=== PATIENT | male | born 1960 | race Caucasian/White ===

== ENCOUNTER 2018-11-15 13:10 | Outpatient (CLI) | payer BC, SELFPAY ==
--- NOTE | 2018-11-15 10:45 | DI.RAD_ITS ---
SYMPTOM/DIAGNOSIS: CHRONIC LOW BACK DISCOMFORT, R29.898, LEG WEAKNESS, M54.5 LUMBOSACRAL SPINE: Five views were obtained. Note is made of disc space narrowing at L 5-S 1. Otherwise the intervertebral disc spaces appear fairly well maintained. Mild hypertrophic spurring of vertebral endplates and facet joints is noted at multiple levels. No evidence of spondylolysis or spondylolisthesis. 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
== END 2018-11-15 13:30 ==
PROVIDERS: PCP Nurse Practitioner; Visit Provider Nurse Practitioner
DX: M54.5 Low back pain (principal); R29.898 Other symptoms and signs involving the musculoskeletal system; G89.29 Other chronic pain; M51.37 Other intervertebral disc degeneration, lumbosacral region
CPT/HCPCS: 72110

== ENCOUNTER 2018-11-22 07:04 | Outpatient (CLI) | payer BC, SELFPAY ==
[2018-11-22 08:49] LABS: ALT 19 U/L (12-78); AST 19 U/L (15-37); Albumin 3.8 g/dL (3.4-5.0); Alkaline Phosphatase 48 U/L (46-116); Anion Gap 9.3 mmol/L (3-11); BUN 15 mg/dL (7-18); Bilirubin, Total 0.7 mg/dL (0.2-1.0); CO2 26.7 mmol/L (21.0-32.0); CREATININE 0.78 mg/dL (0.70-1.30); Calculated LDL 125 mg/dL; Chloride 107 mmol/L (98-107); Cholesterol 209 mg/dL (50-200); Glucose 92 mg/dL (70-100); HDL Cholesterol 49 mg/dL (40-60); Sodium 143 mmol/L (136-145); Total Protein 6.8 g/dL (6.4-8.2); Triglyceride 179 mg/dL (30-150)
== END 2018-11-22 07:24 ==
PROVIDERS: PCP Nurse Practitioner; Visit Provider Nurse Practitioner
DX: Z00.00 Encounter for general adult medical examination without abnormal findings (principal); R00.2 Palpitations
CPT/HCPCS: 36415; 80053; 80061; 83721

== ENCOUNTER 2019-08-09 11:00 | Outpatient (CLI) | payer BC, SELFPAY ==
--- NOTE | 2019-08-09 13:00 | DI.US_ITS ---
EXAM: US LOWER EXTREMITY VENOUS RT CLINICAL HISTORY: right calf swelling and pain for 2 weeks,m79.89,m79.661. TECHNIQUE: Right lower extremity venous ultrasound performed using grayscale, color-flow, and spectr al Doppler analysis. COMPARISON: No exams were available for comparison FINDINGS: The right common femoral, femoral and popliteal veins demonstrate normal compressibility, augmentatio n, and color Doppler.There is hypoechoic occlusive thrombus seen in the right posterior tibial vein. It does not extend into the popliteal veins.Saphenofemoral junction is unremarkable. IMPRESSION: There is thrombus present in the right posterior tibialis vein. DATA REPOSITORY:
== END 2019-08-09 11:20 ==
PROVIDERS: PCP Nurse Practitioner; Visit Provider Nurse Practitioner
DX: M79.661 Pain in right lower leg (principal); R22.41 Localized swelling, mass and lump, right lower limb; M79.89 Other specified soft tissue disorders
CPT/HCPCS: 93971

== ENCOUNTER 2019-09-16 11:27 | Outpatient (REF) | payer BC, SELFPAY ==
[2019-09-16 13:05] LABS: Bilirubin Negative (Negative); Blood Large (Negative); Clarity Sl Cloudy (Clear); Glucose Negative (Negative); Ketones Negative (Negative); Leukocyte Esterase Negative (Negative); Nitrite Negative (Negative)
[2019-09-16 13:14] LABS: Epithelial Cells Few HPF (Negative); RBC >50 HPF (0-2)
[2019-09-16 13:15] LABS: C & S Indicated? Yes
== END 2019-09-16 11:47 ==
LOC: LBN 11:27
PROVIDERS: PCP Nurse Practitioner; Visit Provider Nurse Practitioner
DX: R31.9 Hematuria, unspecified (principal)
CPT/HCPCS: 81003; 81015; 87086

== ENCOUNTER 2019-10-30 02:41 | Outpatient (CLI) | payer BC, SELFPAY ==
--- NOTE | 2019-10-30 08:30 | DI.US_ITS ---
EXAM: US LOWER EXTREMITY VENOUS RT CLINICAL HISTORY: F/u right DVT. C/o new distended peripheral vein,i82.409 TECHNIQUE: Right lower extremity venous ultrasound performed using grayscale, color-flow, and spectr al Doppler analysis. COMPARISON: US US LOWER EXTREMITY VENOUS RT from 08/09/2019 FINDINGS: The right common femoral, femoral and popliteal veins demonstrate normal compressibility, augmentatio n, and color Doppler. The posterior tibial veins are patent. The saphenofemoral junction is unremark able. There is no evidence of a Obregon cyst. The soft tissues are unremarkable. IMPRESSION: No DVT. DATA REPOSITORY:
== END 2019-10-30 03:01 ==
PROVIDERS: PCP Nurse Practitioner; Visit Provider Nurse Practitioner
DX: Z86.718 Personal history of other venous thrombosis and embolism
CPT/HCPCS: 93971

== ENCOUNTER 2019-12-13 13:40 | Outpatient (CLI) | payer BC, SELFPAY ==
[2019-12-13 14:27] LABS: Bilirubin Negative (Negative); Blood Trace-intact (Negative); Clarity Clear (Clear); Glucose Negative (Negative); Ketones Negative (Negative); Leukocyte Esterase Negative (Negative); Nitrite Negative (Negative); Specific Gravity 1.015 (1.005-1.025); Urobilinogen 0.2 EU/dL (Up TO 0.2)
[2019-12-13 14:38] LABS: Bacteria Negative HPF (Negative); C & S Indicated? No; Casts Negative LPF (Negative); Crystals Negative HPF (Negative); Epithelial Cells Rare HPF (Negative); Mucus Negative (Negative); RBC 0-2 HPF (0-2); WBC 0-2 HPF (0-5)
[2019-12-13 14:57] LABS: BUN 19 mg/dL (7-18); CREATININE 0.88 mg/dL (0.70-1.30); Calcium 9.1 mg/dL (8.5-10.1); Chloride 102 mmol/L (98-107); Glucose 92 mg/dL (74-106); Potassium 4.1 mmol/L (3.5-5.1); Sodium 138 mmol/L (136-145)
[2019-12-13 22:57] LABS: PSA, Screening 1.3 ng/mL (0.0-3.5)
== END 2019-12-13 14:00 ==
PROVIDERS: PCP Nurse Practitioner; Visit Provider Nurse Practitioner Family
DX: R31.0 Gross hematuria (principal)
CPT/HCPCS: 36415; 80048; 84153; 81003; 81015

== ENCOUNTER 2019-12-17 03:35 | Outpatient (CLI) | payer BC, SELFPAY ==
--- NOTE | 2019-12-17 07:00 | DI.CT_ITS ---
EXAM: CT ABDOMEN PELVIS WO/W TECHNIQUE: Imaging Protocol: Axial computed tomography images with coronal and sagittal reformatted images were created and reviewed CONTRAST MATERIAL: Intravenous: Omnipaque 350 Contrast volume:100 cc contrast route:IV - Oral: no COMPARISON: No exams were available for comparison FINDINGS: ABDOMEN: Lung Bases: Normal where visualized. Liver: Normal density. No measurable mass. Gallbladder and biliary tract: No radiodense calculus or dilation. Pancreas: Normal density, no abnormal calcifications or inflammatory process. Spleen: Normal. Kidneys: Normal size, contour and axis. No radiodense stones or obstructive uropathy. No masses seen. Adrenal glands: No masses seen. Lymph nodes: Within normal limits. Abdominal Aorta: Abdominal portion non-dilated. PELVIS: Bladder: An enhancing mass measuring 17 x 12 millimeters is seen along the right wall of the bladder. Bowel: No obstruction or bowel wall thickening. Peritoneal cavity: No ascites, collection or mesenteric inflammatory response. Bones: Degenerative disc changes are seen at L5-S1. Reproductive organs: Within normal limits. IMPRESSION: Right-sided bladder mass. Normal appearing kidneys. RADIATION DOSE DELIVERED: Total DLP DATA REPOSITORY: All CT scans at this facility are submitted to the National Radiology Data Registry (NRDR) Dose Index Registry (DIR) with the [employer] (ACR). RADIATION OPTIMIZATION: All CT scans at this facility use at least one of these dose optimization te chniques: automated exposure control; mA and/or kV adjustment per patient size (includes targeted exa ms where dose is matched to clinical indication); or iterative reconstruction.
[2019-12-17] MEDS: Omnipaque 350 MG/ML 100 ML BTL IJ (08:06)
[2019-12-17] MEDS: Normal Saline - Diluent 50 ML VIAL IV (08:07)
== END 2019-12-17 03:55 ==
PROVIDERS: PCP Nurse Practitioner; Visit Provider Nurse Practitioner Family
DX: N32.89 Other specified disorders of bladder (principal)
CPT/HCPCS: 74178; J3490

== ENCOUNTER 2019-12-17 07:13 | Outpatient (CLI) | payer BC, SELFPAY ==
[2019-12-18 20:40] LABS: COVID-19 RT-PCR Result NEGATIVE (Negative)
== END 2019-12-17 07:33 ==
PROVIDERS: PCP Nurse Practitioner; Visit Provider Nurse Practitioner Family
DX: Z11.59 Encounter for screening for other viral diseases (principal)
CPT/HCPCS: U0003

== ENCOUNTER 2019-12-20 08:23 | Outpatient (CLI) | payer BC, SELFPAY ==
[2019-12-21 20:22] LABS: COVID-19 RT-PCR Result NEGATIVE (Negative)
== END 2019-12-20 08:43 ==
PROVIDERS: PCP Nurse Practitioner; Visit Provider Urology
DX: Z11.59 Encounter for screening for other viral diseases (principal)
CPT/HCPCS: U0003

== ENCOUNTER 2019-12-20 19:14 | Outpatient (CLI) | payer BC, SELFPAY ==
--- NOTE | 2019-12-20 10:30 | DI.US_ITS ---
EXAM: US LOWER EXTREMITY VENOUS RT CLINICAL HISTORY: Return of DVT?, H/O DVT, CALF SWELLING, PREOP. TECHNIQUE: Lower extremity venous ultrasound performed using grayscale, color-flow, and spectral Do ppler analysis. COMPARISON: No exams were available for comparison FINDINGS: The common femoral, femoral and popliteal veins demonstrate normal compressibility, augmentation, and color Doppler. The posterior tibial veins are patent. No saphenous vein thrombosis or other superfi cial venous thrombosis is seen. No hematoma or Obregon's cyst is seen. IMPRESSION: Negative lower extremity ultrasound. No evidence of DVT. DATA REPOSITORY:
== END 2019-12-20 19:34 ==
PROVIDERS: PCP Nurse Practitioner; Visit Provider Nurse Practitioner Family
DX: M79.89 Other specified soft tissue disorders (principal)
CPT/HCPCS: 93971

== ENCOUNTER 2019-12-24 07:12 | Day surgery (SDC) | payer BC, SELFPAY ==
--- NOTE | 2019-12-24 06:50 | HPE_ITS ---
Assessment and Plan Assessment and plan (1) Bladder mass: Status: Acute Assessment and plan: For cystoscopy and possible TURBT (2) Gross hematuria: Status: Acute History of Present Illness History of Present Illness Chief Complaint: Bladder mass Narrative: his is a 59-year-old gentleman who initially noticed gross painless hematuria about 3 months ago. At that time, he was on an anticoagulant for a right calf DVT. The hematuria never lasted more than 24 hours. He had a urine culture that was negative. He was told that the blood was likely related to the anticoagulant. No additional testing was performed. He has been off of his anticoagulant for the past month. In spite of this, he had another episode of gross painless hematuria. He noticed that his urinary stream was a bit slow. Eventually, he passed some solid debris within the urine. His urine flow immediately improved. His most recent episode of hematuria occurred while he was traveling out of state. We have been trying to negotiate the [employer] quarantine recommendations while obtaining his hematuria work-up. He has been able to get a CT urogram and some blood work drawn. The patient tells me that he was a tobacco smoker in his teens and 20s. He then chewed tobacco after that but is now using nicotine gum. He has no other known bleeding disorders. He has no issues tolerating anesthesia. He tells me that in the last 2 or 3 days, he has had some right calf soreness again. He was concerned that he may be developing another DVT, so a doppler study was obtained. Fortunately, no recurrent DVT was identified. He does have a family history of prostate cancer in that his father was di agnosed at the age of 70. Review of Systems Narrative: No fevers or chills No vision change or dysphasia No diabetes or thyroid dysfunction No shortness of breath, cough or hemoptysis No chest pain No nausea, vomiting, hepatitis, ulcers, jaundice, diarrhea or constipation No seizures, strokes or peripheral neuropathy Hx DVT but recent negative doppler US No gout PFSH Medical History Bladder mass DVT of lower limb, acute Family history of malignant melanoma History of basal cell cancer 02/22/19 Dr Baxter for yearly skin f/u Varicose vein of leg Surgical History (Updated 12/24/19 @ 07:43 by Lashonda Sanchez) Arthroplasty of knee R, year ago Dr. Ferguson, Glenn Delgado Pt. reports it was a scope History of tonsillectomy and adenoidectomy Hx of colonoscopy Family History Mother , mitral valve surgery, pacemaker Heart disease Hypertension Father Melanoma Carcinoma of prostate COPD (chronic obstructive pulmonary disease) Social History Smoking/Tobacco Use Status: Former Tobacco Use Tobacco: How many years used: 10 Alcohol Intake: current Alcohol Intake frequency: 3 or more drinks per day Alcohol type: beer Drug use: Occasionally Substance use type: marijuana Details: pt. used smokeless tobacco for ten years, has not used for a long time. Alcohol: t-5: 2 beers. 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 Working smoke detector in home: Yes Carbon monox detector in home: Yes Do you feel safe at home: Yes Do you feel safe in your relationship?: Yes Meds Home Medications and Allergies Home Medications Medication Instructions Recorded Confirmed Type ibuprofen 200 mg PO PRN 02/23/17 12/24/19 History hydrocortisone 0.5 % topical cream 1 applic TP BID PRN 02/25/19 12/24/19 History thymol 3% in ethyl alcohol 1 applic TOPICAL PRN PRN 02/25/19 12/24/19 History diphenhydramine HCl 25 mg capsule 25 mg PO HS PRN 08/16/19 12/24/19 History Allergies Allergy/AdvReac Type Severity Reaction Status Date / Time No Known Allergies Allergy Unverified 12/24/19 07:38 Exam Const General: cooperative and comfortable Neck Neck: supple Resp Effort & Inspection: normal respiratory effort Auscultation: clear to auscultation bilaterally Cardio Rate: regular rate Rhythm: regular rhythm GI Palpation: soft and no masses Neuro General: patient alert, patient awake and patient oriented x3 COVID-19 Screening Have you,or household,traveled outside [place] in last 14 days?: No Had IN PERSON contact w/suspected or confirmed C-19 person: No
[2019-12-24 07:51] VITALS: BP 133/89; PULSE 65; RESP 16; TEMP 36.7; O2SAT 99
[2019-12-24] MEDS: Lactated Ringers 1,000 ML 80 ML IV (08:10)
[2019-12-24] MEDS: ceFAZolin 1 GM/50 ML BAG IVPB (09:12)
[2019-12-24] MEDS: Lidocaine 2% Jelly 6 ML SYR (09:35)
--- NOTE | 2019-12-24 09:40 | BLADDER_PTH ---
PATIENT: Hiro Middleton LOC: [facility] U#:[id number] AGE/SX: 59/M ROOM: RE12/24/[address]: Maynor Salazar MD : [id number] BED: DIS: 12/24/2019 SPEC #: [id number] RECD: 12/24/19 12:39 STATUS: MAXIMO REWilliam #: [id number] DEZ: 12/24/19 09:[address]: Maynor Salazar DEPT: Surgical Specimen RECD BY: Korin Pinto ENTERED: 12/24/19 12:40 SP TYPE: Bladder OTHR DR: Genevieve Chapman APRN Tissues: 1 - BLADDER BIOPSY Procedures: IMMUNOPEROXIDASE STAIN GROSS AND MICRO LEVEL 5 Comments: [id number]
--- NOTE | 2019-12-24 09:55 | W.PM.DSUDISC ---
Discharge Plan Disposition Patient Disposition: HOME Condition: Stable Discharge Details Reason For Visit: bladder tumor Attending Provider: Maynor Salazar Primary Care Provider: Genevieve Chapman Home Meds and New Rx's Prescriptions: No Action ibuprofen 200 MG capsule 200 mg PO PRN RF: 0 thymol 3% in ethyl alcohol 1 applic topical PRN PRNRF: 0 hydrocortisone 0.5 % cream 1 applic TP BID PRNRF: 0 diphenhydramine HCl [Benadryl] 25 mg capsule 25 mg PO HS PRNRF: 0 Discharge Instructions Additional Instructions: Montesinos to leg bag Followup 1 week for catheter removal Followup 2 weeks for pathology results Activity:: no lifting over 10 pounds Shower/Bathe:: 24 hours Diet:: As Tolerated Discharge Orders Discharge Orders: Discharge Order (Routine); Ordered 12/24/19 Ordered By: Maynor Salazar DS: Diagnosis Discharge Diagnosis (1) Bladder mass: Status: Acute (2) Gross hematuria: Status: Acute
--- NOTE | 2019-12-24 10:02 | ROE_ITS ---
Date of service: 12/24/19 Time of Service: 10:03 Operative Note Operative Note DATE OF PROCEDURE: 12/24/19 PRE-OP DIAGNOSIS: Hematuria Bladder mass POST-OP DIAGNOSIS: same PROCEDURE: cystoscopy with TUR Bladder tumor (2 to 5 cm) SURGEON: Maynor Salazar ANESTHESIA: other (general without intubation) ESTIMATED BLOOD LOSS: 50 PATHOLOGY: other (bladder mass) COMPLICATIONS: None Patient was transported to: same day Patient's condition: stable Indications: This is a 59-year-old gentleman who initially presented with gross painless hematuria. His urine culture was unremarkable. A CT urogram showed a mass on the right side of the bladder. He presents for cystoscopy and transurethral resection of any visible lesion. Findings: Nodular bladder lesion measuring 2 to 3 cm on right bladder wall Procedure Description: The patient was brought to the operating room on 12/24/2019. After successful induction of general anesthesia he was placed in the dorsal lithotomy position. His genitalia was prepped and draped. 2% Xylocaine jelly was instilled into the urethra to act as a local anesthetic. Urethral meatus was dilated up to a size 26 Turkmen. The 24 Turkmen resectoscope sheath was passed through the urethra into the bladder. We used a visual obturator and a 30 degree lens to inspect the urethra and bladder. The pendulous, bulbous and membranous urethra was appeared normal with no strictures. The prostatic urethra showed an elevated bladder neck but no papillary or nodular lesions. Once the bladder neck was entered, the bladder mucosa was inspected. Both ureteral orifice ease appeared normal in configuration and location. No blood was seen coming from either side. The left bladder wall and posterior bladder wall appeared normal. There was a necrotic appearing mass arising on the right side of the bladder. Between 2 and 3 cm in largest dimension. No additional mucosal abnormalities were seen. We then used an [employer] resectoscope and bipolar cautery to resect all visible tumor. We made to the muscle layer so that adequate pathology evaluation could be undertaken. The the resection site was cauterized bipolar cautery. Once hemostasis, the bladder was filled with irrigant. A 20 Turkmen coud? tipped catheter was passed through the urethra into the bladder. The catheter balloon was inflated with 10 cc of sterile water. The catheter was hooked to gravity drainage. A bimanual exam revealed no fixation of the bladder and no palpable mass.
[2019-12-24] MEDS: Phenazopyridine 200 MG TAB PO (10:22)
[2019-12-24 10:43] VITALS: BP 124/85; PULSE 65; RESP 15; TEMP 36.5; O2SAT 99
== END 2019-12-24 11:32 | disposition home or self-care (01) ==
PROVIDERS: PCP Nurse Practitioner; Visit Provider Urology
PROC: 0TBB8ZZ Excision of Bladder, Via Natural or Artificial Opening Endoscopic (ICD-10-PCS; CPT 52235; principal; 2019-12-24 08:30)
DX: C67.2 Malignant neoplasm of lateral wall of bladder (principal); R31.0 Gross hematuria; Z79.01 Long term (current) use of anticoagulants; Z86.718 Personal history of other venous thrombosis and embolism
CPT/HCPCS: 52235; 88305; NC; 88307; 88361; J0690; J1100; J1885; J2001; J2405

== ENCOUNTER 2020-01-24 08:13 | Outpatient (CLI) | payer BC, SELFPAY ==
[2020-01-25 14:58] LABS: COVID-19 RT-PCR Result NEGATIVE (Negative)
== END 2020-01-24 08:33 ==
PROVIDERS: PCP Nurse Practitioner; Visit Provider Urology
DX: Z11.59 Encounter for screening for other viral diseases (principal)
CPT/HCPCS: U0003

== ENCOUNTER 2020-01-27 01:15 | Outpatient (CLI) | payer BC, SELFPAY ==
--- NOTE | 2020-01-27 07:30 | DI.CT_ITS ---
EXAM: CT CHEST W CLINICAL HISTORY: r/o mets,BLADDER CA,C67.9 TECHNIQUE: Imaging Protocol: Axial computed tomography images with coronal and sagittal reformatted images were created and reviewed CONTRAST MATERIAL: Intravenous: Omnipaque 350 Contrast volume:70 cc COMPARISON: CT CT ABDOMEN PELVIS WO/W from 12/17/2019 FINDINGS: Tracheobronchial tree: Patent where visualized. Mediastinum and Saniya: No dominant adenopathy or fluid collection. Pulmonary parenchyma: No consolidation or dominant measurable mass. No pulmonary nodules. Pleura: No effusion or pneumothorax. Heart: The heart is not dilated. No coronary artery calcifications are seen. Aorta: Thoracic aorta non-dilated. No significant atherosclerotic changes. Upper abdomen: Unremarkable. Lymph nodes: Within normal limits. Bones: Degenerative disc changes. Soft tissues: Unremarkable. IMPRESSION: Normal CT of the thorax.No evidence of metastatic disease. RADIATION DOSE DELIVERED: 614.39mGy.cm Total DLP DATA REPOSITORY: All CT scans at this facility are submitted to the National Radiology Data Registry (NRDR) Dose Index Registry (DIR) with the [employer] (ACR). RADIATION OPTIMIZATION: All CT scans at this facility use at least one of these dose optimization te chniques: automated exposure control; mA and/or kV adjustment per patient size (includes targeted exa ms where dose is matched to clinical indication); or iterative reconstruction.
[2020-01-27] MEDS: Omnipaque 350 MG/ML 100 ML BTL IV (13:15)
[2020-01-27] MEDS: Normal Saline - Diluent 50 ML VIAL IV (13:18)
[2020-01-27] MEDS: Normal Saline Flush 10 ML SYR IVP (13:19)
== END 2020-01-27 01:35 ==
PROVIDERS: PCP Nurse Practitioner; Visit Provider Urology
DX: C67.9 Malignant neoplasm of bladder, unspecified (principal)
CPT/HCPCS: 71260; J3490

== ENCOUNTER 2020-01-29 01:00 | Outpatient (CLI) | payer BC, SELFPAY ==
--- NOTE | 2020-01-29 08:00 | DI.NM_ITS ---
EXAM: NM BONE SCAN WHOLE BODY GRP CLINICAL HISTORY: r/o mets, BLADDER CA, C67.9. TECHNIQUE: Injected Dose: 26.0 mCi Tc-99m MDP Delayed whole body images and lateral views of the ribs and pelvis were performed at: 2-3 hours. COMPARISON: CT CT ABDOMEN PELVIS WO/W from 12/17/[address] CHEST W from 01/27/2020 FINDINGS: Symmetric axial uptake. Bilateral renal excretion is identified. There is mildly increased activity i n the lower lumbar spine which could be attributable to degenerative changes. Increased activity is seen symmetrically in both AC joints which could also be secondary to degenerative changes. Mildly increased activity is seen in the medial femoral tibial joint of the right knee. IMPRESSION: 1. Areas mildly increased labeling likely reflecting degenerative changes. No evidence of metastatic disease. DATA REPOSITORY:
== END 2020-01-29 01:20 ==
PROVIDERS: PCP Nurse Practitioner; Visit Provider Urology
DX: C67.9 Malignant neoplasm of bladder, unspecified (principal)
CPT/HCPCS: 78306

== ENCOUNTER 2020-02-21 01:13 | Outpatient (CLI) | payer BC, SELFPAY ==
[2020-02-21 12:34] LABS: Bilirubin Negative (Negative); Blood Moderate (Negative); Clarity Clear (Clear); Glucose Negative (Negative); Ketones Negative (Negative); Leukocyte Esterase Trace (Negative); Nitrite Negative (Negative); Urobilinogen 0.2 EU/dL (Up TO 0.2)
[2020-02-21 12:43] LABS: Bacteria Few HPF (Negative); C & S Indicated? C&S Done As Ordered; Casts Negative LPF (Negative); Crystals Negative HPF (Negative); Epithelial Cells Rare HPF (Negative); Mucus Negative (Negative)
== END 2020-02-21 01:33 ==
PROVIDERS: PCP Nurse Practitioner; Visit Provider Nurse Practitioner
DX: C67.9 Malignant neoplasm of bladder, unspecified (principal); R30.0 Dysuria
CPT/HCPCS: 36415; 81003; 81015; 82565; 87086

== ENCOUNTER 2020-02-28 08:45 | Outpatient (CLI) | payer BC, SELFPAY ==
--- NOTE | 2020-03-17 12:44 | ZIOP_ITS ---
Date of service: 03/17/20 Time of Service: 12:44 14 Day [employer] Mechanical Engineer Referring Provider:: beatris Indications:: palps Note: This is a 14-day monitor ordered for indication of palpitations. ?The patient was in normal sinus rhythm for the majority of the recording with an average heart rate of 69 bpm. Minimum heart rate was 44 bpm. ?The patient had occasional (2.4%) PVCs and rare PACs. ?The patient had multiple episodes of supraventricular tachycardia. Tachycardia labeled as VT is likely SVT with baseline right bundle branch block. The maximal heart rate during these tachycardic episodes was 256 bpm. ?There were no episodes of atrial fibrillation, no pauses greater than 3 seconds and no evidence of high degree heart block. ?Patient triggered events were associated with sinus rhythm.
== END 2020-02-28 09:05 ==
PROVIDERS: PCP Nurse Practitioner; Visit Provider Nurse Practitioner
DX: R00.2 Palpitations (principal); Z82.49 Family history of ischemic heart disease and other diseases of the circulatory system
CPT/HCPCS: 0296T

== ENCOUNTER 2020-02-28 09:03 | Emergency (ER) | payer BC, SELFPAY ==
[2020-02-28] VITALS (34 sets, daily range): BP systolic 114–150; BP diastolic 77–93; PULSE 57–76; RESP 12–23; TEMP 36.7; O2SAT 96–100
--- NOTE | 2020-02-28 09:00 | RT.EKG_ITS ---
APPROVED REPORT Exam: Resting ECG Patient Location: E HR:68 bpm ECG Measurements Heart Rate 68 AXIS OK 169 P 42 QRSd 139 QRS 54 QT 402 T 12 QTc 429 Conclusion Sinus rhythm, normal P axis Right bundle branch block
--- NOTE | 2020-02-28 09:07 | ED.GENADUL_ITS ---
Discharge Plan Disposition Patient Disposition: HOME Condition: Stable Discharge Details Clinical Impression: Tachycardia Primary Care Provider: Genevieve Chapman ED Provider: Wyatt Dobbins Home Meds and New Rx's Prescriptions: New metoprolol succinate 25 mg tablet extended release 24 hr 25 mg PO DAILY Qty: 20 RF: 0 Discharge Instructions Instructions: Tachycardia (ED) Additional Instructions: Work-up in the ER today did not reveal any obvious emergent process, upon discharge you are currently asymptomatic with a heart rate in the low 60s. Metoprolol as directed. Please watch for new or worsening symptoms and return to the ER for any concerns. Wear your Holter monitor as directed and follow the instructions given to you by the respiratory therapist. I recommend reaching out to your primary care provider later today or tomorrow for prompt outpatient reevaluation. I also recommend that you reach out to our restaurant management internship, Dr. Del Rio, she is aware of your case and will follow you as an outpatient. Referrals: Dominique Del Rio MD [ [facility] STAFF PHYSICIAN] - Medical Decision Making 59-year-old gentleman with recent diagnosis of bladder CA, presenting for a week or so of a sensation in his chest, when this happens he feels lightheaded and has generalized weakness. Spoke with his primary care provider regarding this and was set up today for a fruit or nut farmworker. Went to visit with respiratory therapy and subsequently came to the ER for further evaluation. Patient is currently asymptomatic however during my evaluation I was able to see his fruit or nut farmworker and his heart rate went from the 60s up into the 140s, this lasted for a few seconds, and during this timeframe he was symptomatic. Once it resolved he was once again asymptomatic. The rhythm strip was printed and it appears as though he was in a narrow complex tachycardia, reviewed with Dr. Olsen. Will initiate a cardiac work-up, obtain TSH, chest CTA given his history of CVA, DVT, now with tachycardia. Initial work-up here in the ER is unremarkable for obvious emergent process. White blood cell count of 3.96 hemoglobin 15.6 hematocrit 46.2 platelet count 233. Electrolytes unremarkable. Creatinine 0.90 with a GFR greater than 60. Glucose 94 magnesium 2.0, troponin less than 0.05, BNP 124, TSH 0.88. Chest CTA read by radiology as negative. Discussed work-up with patient. He is relieved. Watching his fruit or nut farmworker, he did go into short runs of what appeared to be narrow complex sinus tachycardia that did resolve spontaneously. Patient is agreeable to await a repeat troponin at 3 hours. In the meantime I reached out to our cardiology team, Dr. Del Rio. She recommends starting the patient on metoprolol 25 mg daily, setting up for his Holter monitor, and she is happy to follow the patient as an outpatient. She believes he can be safely discharged here in the ER. I will give him her name and number for outpatient reevaluation. Respiratory contacted, they came down set up for the Holter monitor. First dose of metoprolol given here in the ER. Repeat troponin less than 0.05. Patient remains asymptomatic. We discussed outpatient Holter monitor, prescription for metoprolol, cardiology follow-up, and encouraged to return to the ER for new or worsening symptoms. Patient without additional questions or concerns and is comfortable with discharge. Medical Records Medical records reviewed: Yes I reviewed the patient's medical records. Lab Data Lab results reviewed: Yes I reviewed the patient's lab results. Lab results narrative: Laboratory Tests Range/Units 02/28/20 02/28/20 02/28/20 09:17 09:17 09:17 WBC (4.4-10.8) 10^3/uL 3.96 L RBC (4.36-5.78) 10^6/uL 5.35 Hgb (13.5-17.5) g/dL 15.6 Hct (40.0-50.0) % 46.2 MCV (80-95) fL 86.4 MCH (27.0-33.0) pg 29.2 MCHC (32.0-36.0) % 33.8 RDW (11.8-14.1) % 12.0 Plt Count (130-400) 10^3/uL 233 MPV (8.0-11.0) fL 10.5 Immature Gran % 0.0 Neutrophils % 49.3 Lymphocytes % 37.1 Monocytes % 9.8 Eosinophils % 3.3 Basophils % 0.5 Nucleated RBC % % 0 Absolute Neutrophils (1.2-6.7) 10^3/uL 1.95 Absolute Lymphocytes (1.2-3.4) 10^3/uL 1.47 Absolute Monocytes (0.1-0.8) 10^3/uL 0.39 Absolute Eosinophils (0.0-0.7) 10^3/uL 0.13 Absolute Basophils (0.0-0.2) 10^3/uL 0.02 Sodium (136-145) mmol/L 137 Potassium (3.5-5.1) mmol/L 4.0 Chloride (98-107) mmol/L 103 Carbon Dioxide (21.0-32.0) mmol/L 29.9 Anion Gap (3-11) mmol/L 4.1 BUN (7-18) mg/dL 18 Creatinine (0.70-1.30) mg/dL 0.90 Estimated GFR/1.73 m2 (mL/min/1.73m2) >= 60.00 Glucose (74-106) mg/dL 94 Calcium (8.5-10.1) mg/dL 9.1 Magnesium (1.8-2.4) mg/dL 2.0 Total Bilirubin (0.2-1.0) mg/dL 0.9 AST (15-37) U/L 22 ALT (16-63) U/L 17 Alkaline Phosphatase (46-116) U/L 65 Troponin I (<0.06) ng/mL < 0.05 NT-Pro-B Natriuret Pep (<300) pg/mL 124 Total Protein (6.4-8.2) g/dL 7.4 Albumin (3.4-5.0) g/dL 4.1 TSH (0.36-3.74) uIU/mL 0.88 ECG Data Attestation: I personally reviewed and interpreted this ECG (s) as follows: Interpretation: Please see official report by Dr. Olsen. Sinus rhythm, ventricular rate of 68. Right bundle branch block. No STEMI. HPI General Mode of arrival: ambulatory . Date/Time Provider Initiated Documentation: 02/28/20 09:03 . Limitations to Documentation: no limitations . Information obtained by: patient . HPI Narrative: This is a 59-year-old gentleman, former smoker, past medical history of recent diagnosis of bladder cancer, DVT earlier this year, was anticoagulated for 3 months, currently not anticoagulated. He is awaiting his follow-up with urology to decide whether or not he has stage I or stage II bladder cancer and what the treatment plan will be. He reports a history of palpitations that he describes as fluttering in his chest intermittently for a very long time. Subsequently for the past week or so he has had a different sensation in his chest, he explains it as though when he is nervous with public speaking and feels nervous. Denies fluttering or pain. When he gets this sensation he also has generalized weakness, feels lightheaded. He denies any recent illness or trauma. He denies headache, fever, chest pain, shortness of breath, abdominal pain, nausea, vomiting, numbness, tingling, weakness in his extremities. He has talk with his primary care provider and was set up today to meet with respiratory therapy for a 14-day fruit or nut farmworker but upon evaluation was subsequently sent to the ER. During my HPI, patient reported that he was asymptomatic, I was able to visualize his heart rate on the fruit or nut farmworker go from the high 60s, up to what appeared to be a narrow complex tachycardia into the 130s-140s. Patient stated there it is. Subsequently this resolved spontaneously within a matter of a few seconds, patient returned to feeling asymptomatic. Related Data Home Medications Medication Instructions Recorded Confirmed metoprolol succinate 25 mg PO DAILY #20 tab 02/28/20 Previous Rx's Medication Instructions Recorded metoprolol succinate 25 mg PO DAILY #20 tab 02/28/20 Allergies Allergy/AdvReac Type Severity Reaction Status Date / Time No Known Allergies Allergy Unverified 12/24/19 07:38 Review of Systems Constitutional Constitutional: Denies fatigue, Denies fever(s) and Denies headache(s) ENT Ears, Nose, Mouth, and Throat: Denies headache(s) Cardiovascular Cardiovascular: Denies chest pain, Reports lightheadedness and Denies dyspnea Respiratory Respiratory: Denies cough and Denies dyspnea Gastrointestinal Gastrointestinal: Denies abdominal pain, Denies nausea and Denies vomiting Genitourinary Genitourinary: Denies dysuria Musculoskeletal Musculoskeletal: Denies back pain, Denies numbness and Denies tingling Integumentary/Breasts Skin/Breast: Denies rash Neurologic Neurologic: Denies headache(s), Denies numbness, Denies tingling and Reports weakness (Generalized) Psychiatric Psychiatric: Reports anxiety (And increased stress) Endocrine Endocrine: Denies fatigue [facility] Medical History Bladder cancer Bladder mass DVT of lower limb, acute Family history of heart disease Family history of malignant melanoma History of basal cell cancer 02/22/19 Dr Baxter for yearly skin f/u Palpitations Varicose vein of leg Surgical History Arthroplasty of knee R, year ago Dr. Ferguson, [facility] [place] Pt. reports it was a scope History of tonsillectomy and adenoidectomy Hx of colonoscopy Family History Mother , mitral valve surgery, pacemaker Heart disease Hypertension Father Melanoma Carcinoma of prostate COPD (chronic obstructive pulmonary disease) Social History Smoking/Tobacco Use Status: Former Tobacco Use Tobacco: How many years used: 10 Smoking risk assessment performed?: Yes Alcohol Intake: current Alcohol Intake frequency: 3 or more drinks per day Alcohol type: beer Drug use: Occasionally Substance use type: marijuana Details: pt. used smokeless tobacco for ten years, has not used for a long time. Alcohol: t-5: 2 beers. Marijuana: weeks ago Adopted: No Household members: none Housing: house Number of Children: 0 Communication Needs: Corrective Lenses Do you need help understanding health information?: Never Pets and animals: Yes Pets and animals: cat(s) What type of physical activity do you participate in: none Seatbelt use: always Drive intox or ride w/intox auto carrier driver: No Working smoke detector in home: Yes Carbon monox detector in home: Yes Do you feel safe at home: Yes Do you feel safe in your relationship?: Yes Exam Const General: cooperative, healthy appearing, comfortable and no acute distress Orientation: alert and awake [facility] Head: normal to inspection, normocephalic and atraumatic Face and sinus: normal facial exam Mouth: moist mucous membranes Eyes General: appearance normal, both eyes and all related structures Conjunctivae: conjunctivae normal Sclera: sclerae normal Neck Neck: normal visual inspection, full ROM, meningismus present, trachea midline and supple Resp Effort & Inspection: normal respiratory effort and able to speak in complete sentences Auscultation: clear to auscultation bilaterally Cardio Rate: regular rate Rhythm: regular rhythm GI Palpation: soft, not firm, no guarding, no masses and nontender Back/Spine/Pelvis Back: No back tenderness Skin General skin exam: no rashes or lesions noted Neuro General: patient alert, patient awake, moves all extremities and no focal motor deficits Cognition: normal cognition Speech: speech normal Gait: normal gait Motor: muscle tone normal throughout and strength 5/5 throughout Sensory Exam: no sensory deficits noted Extrem General: normal to inspection, full ROM, capillary refill normal, no pedal edema and no calf tenderness Psych Appearance: grossly normal Mental Status: mental status grossly normal
--- NOTE | 2020-02-28 09:30 | DI.CT_ITS ---
EXAM: CT CHEST PE CTA CLINICAL HISTORY: tachy, recent dvt, not anticoagulated. TECHNIQUE: Imaging Protocol: Axial CT angiography was performed with multi-slice acquisition and mu lti-planar and/or 3D reconstructions. CONTRAST MATERIAL: Intravenous: Omnipaque 350 Contrast volume:85 mL COMPARISON: CT CT ABDOMEN PELVIS WO/W from 12/17/2019 FINDINGS: Pulmonary Arteries: No evidence of filling defect to suggest pulmonary emboli. Tracheobronchial tree: Patent where visualized. Mediastinum and Saniya: No dominant adenopathy or fluid collection. Pulmonary parenchyma: No consolidation or dominant measurable mass. No architectural distortion. Pleura: No effusion or pneumothorax. Heart: The heart is not dilated. Mild coronary artery calcification. No pericardial effusion. Aorta: Thoracic aorta non-dilated. No dissection. Upper abdomen: Unremarkable. Bones: Degenerative changes. Soft tissues: Unremarkable. IMPRESSION: No evidence of pulmonary embolism, thoracic aortic dissection or aneurysm. Findings were discussed with the emergency department on the date of the examination. RADIATION DOSE DELIVERED: 381.24mGy.cm Total DLP DATA REPOSITORY: All CT scans at this facility are submitted to the National Radiology Data Registry (NRDR) Dose Index Registry (DIR) with the [employer] (ACR). RADIATION OPTIMIZATION: All CT scans at this facility use at least one of these dose optimization te chniques: automated exposure control; mA and/or kV adjustment per patient size (includes targeted exa ms where dose is matched to clinical indication); or iterative reconstruction.
[2020-02-28 09:32] LABS: Absolute Basophil Count 0.02 10^3/uL (0.0-0.2); Absolute Eosinophil Count 0.13 10^3/uL (0.0-0.7); Absolute Lymphocyte Count 1.47 10^3/uL (1.2-3.4); Absolute Monocyte Count 0.39 10^3/uL (0.1-0.8); Absolute Neutrophil Count 1.95 10^3/uL (1.2-6.7); Basophils % 0.5; Eosinophils % 3.3; HCT 46.2 % (40.0-50.0); HGB 15.6 g/dL (13.5-17.5); Lymphocytes % 37.1; MCH 29.2 pg (27.0-33.0); MCHC 33.8 % (32.0-36.0); MCV 86.4 fL (80-95); MPV 10.5 fL (8.0-11.0); Monocytes % 9.8; Neutrophils % 49.3; Nucleated RBC 0 %; Platelet Count 233 10^3/uL (130-400); RBC 5.35 10^6/uL (4.36-5.78); WBC 3.96 10^3/uL (4.4-10.8)
[2020-02-28] MEDS: Normal Saline 1,000 ML 1000 ML IV (09:55)
[2020-02-28 10:08] LABS: ALT 17 U/L (16-63); AST 22 U/L (15-37); Albumin 4.1 g/dL (3.4-5.0); Alkaline Phosphatase 65 U/L (46-116); Anion Gap 4.1 mmol/L (3-11); BUN 18 mg/dL (7-18); Bilirubin, Total 0.9 mg/dL (0.2-1.0); CO2 29.9 mmol/L (21.0-32.0); Calcium 9.1 mg/dL (8.5-10.1); Chloride 103 mmol/L (98-107); Glucose 94 mg/dL (74-106); Sodium 137 mmol/L (136-145); Total Protein 7.4 g/dL (6.4-8.2)
[2020-02-28 10:09] LABS: NT-proBNP 124 pg/mL (<300); TSH (W/Ref FT4) 0.88 uIU/mL (0.36-3.74); Troponin I < 0.05 ng/mL (<0.06)
[2020-02-28] MEDS: Omnipaque 350 MG/ML 100 ML BTL IV (10:19)
[2020-02-28] MEDS: Normal Saline - Diluent 50 ML VIAL IV (10:20)
--- NOTE | 2020-02-28 10:57 | NUR.NOTE ---
Nursing Note: Independent [place] given cristian Walsh at ER door. Jigna showed her ID for verification purposes. Updated about pt's condition and plan of care- pt verbally agreed to this. Jigna states she will wait in parking lot until further updates. Dog with her in parking lot, given water.
--- NOTE | 2020-02-28 11:44 | NUR.NOTE ---
Nursing Note:Attempt to have patient talk with Stormy from via Zoom. Patient would not cooperate, she held the pillow up in front of her face and just looked around the pillow and Stormy was unable to see her mouth. Stormy will come in to evaluate her. Maintenance needed to work in patient room for a min. Patient walked around the ER with [facility]. Patient was cooperative and followed direction. Lunch tray ordered. Patient was allowed to choose from options available.
[2020-02-28] MEDS: Metoprolol CR 25 MG TABCR PO (12:01)
--- NOTE | 2020-02-28 12:05 | NUR.NOTE ---
Nursing NoteResp. here putting patients Halter Monitor on.
[2020-02-28 12:53] LABS: Troponin I < 0.05 ng/mL (<0.06)
== END 2020-02-28 13:08 | disposition home or self-care (01) ==
PROVIDERS: Emergency Provider Physician Assistant; PCP Nurse Practitioner
DX: R00.0 Tachycardia, unspecified (principal)
CPT/HCPCS: 36415; 71275; 80053; 93005; 96360; 96361; 99285; 83735; 83880; 84443; 84484; 85025; 93010; J3490

== ENCOUNTER 2020-03-24 00:26 | Outpatient (CLI) | payer BC, SELFPAY ==
--- NOTE | 2020-03-24 07:00 | DI.US_ITS ---
APPROVED REPORT EXAM: Comprehensive 2D, Doppler, and color-flow Echocardiogram Patient Location: Out-Patient Cook Helper Dessert: Maria M Mann RDCS (AE) Indications: Palpitations, Family history of CAD Other Information Study Quality: Good Conclusion Left Ventricle : The left ventricle is normal size. The left ventricular systolic function is normal. The left ventricular ejection fraction is within the normal range. There is normal left ventricular wall thickness. There is normal LV segmental wall motion. The left ventricular diastolic function is normal. LVEF is 60%. Right Ventricle : The right ventricle is normal size. The right ventricular systolic function is norm al. The RVSP is 28.9mmHg. Atria : The left atrium size is normal. The right atrium size is normal. Mitral Valve : The mitral valve is normal in structure. Mild mitral regurgitation. No evidence of homero ral valve stenosis. Great Vessels : Aortic root is mildly dilated. The ascending aorta is dilated (4.2cm). Aortic arch is normal in caliber. IVC is normal in size and collapses >50% with inspiration. See remainder of study for further details Wall motion Left Ventricle The left ventricle is normal size. The left ventricular systolic function is normal. The left ventric ular ejection fraction is within the normal range. There is normal left ventricular wall thickness. T here is normal LV segmental wall motion. The left ventricular diastolic function is normal. There is no ventricular septal defect visualized. LVEF is 60%. Right Ventricle The right ventricle is normal size. The right ventricular systolic function is normal. The RVSP is 28 .9mmHg. Atria The left atrium size is normal. The right atrium size is normal. The interatrial septum is intact wit h no evidence for an atrial septal defect. Aortic Valve The aortic valve is normal in structure. Aortic valve is trileaflet. There is no aortic valvular sten osis. No aortic regurgitation is present. Mitral Valve The mitral valve is normal in structure. No evidence of mitral valve stenosis. Mild mitral regurgitat ion. Tricuspid Valve The tricuspid valve is normal in structure. There is no tricuspid valve stenosis. Trace tricuspid reg urgitation. Pulmonic Valve The pulmonary valve is normal in structure. There is no pulmonic valvular stenosis. Trace pulmonic re gurgitation. Great Vessels Aortic root is mildly dilated. The ascending aorta is dilated (4.2cm). Aortic arch is normal in calib er. IVC is normal in size and collapses >50% with inspiration. Pericardium There is no pericardial effusion. 2D Dimensions IVSD d PLAX 1.07 cm M: 0.6-1.2 LV Vol A2C d MOD 93.4 mL LVPW d PLAX 1.06 cm M: 0.6 - 1.2 LV Vol A4C d MOD 119.5 mL LVID d PLAX 4.52 cm M: 4.2 - 5.8 LA vol/ BSA A2C s A-L 26.2 mL/m2 LVDs 2.90 cm M: 2.5 - 4.0 LA vol/ BSA A4C s A-L 20.2 mL/m2 Ao Root d 3.97 cm M: 3.1 - 3.7 LA Vol/ BSA Biplane s A-L 23.3 mL/m2 RA Area A4C 12.92 cm2 LA Area A4C s MOD 15.69 cm2 RA Vol/ BSA A4C s A-L 15.6 mL/m2 LA Area A2C s MOD 18.14 cm2 Ao Asc Diam d 4.21 cm M: 2.6 - 3.4 LV EF A4C MOD 59.3 % LV EF Teichholz 64.2 % LV EF A2C MOD 60.1 % LVEF (Murphy's) 60.65 % M: 52 - 72 LV EF Biplane MOD 60.6 % LV Volume 82.11 mL M: 62 - 150 SV 66.61 mL LV Volume Index 40.64 mL/m2 M: 34 - 74 SV Index 32.99 mL/m2 LV Vol Biplane MOD 109.8 mL FS 34.80 % M-Mode TAPSE 2.01 cm (M/F) >1.7 LV Diastology MV E' medial 0.095 (>0.07 m/s) E/A Ratio 0.9 LV E/e MED 6.70 (<14) MV E Vmax 0.64 (0.4-1.3 m/s) MV E' lateral 0.132 (>0.1 m/s) MV A Vmax 0.70 (0.4-1.3 m/s) LV E/e LAT 4.80 (<14) MV E/A Ratio 0.89 MV E/E' medial 6.74 MV E/E' lateral 4.85 Aortic Valve LVOT Area 4.16 cm2 AoV Area Vmax 4.05 cm2 LVOT Vmax 1.23 m/s AoV Area/ BSA (Vmax) 2.01 cm2/m2 LVOT Mean Dilshad. 0.79 m/s PRISCILA Mean Dilshad. 3.71 cm2 LVOT Peak Grad 6.1 mmHg PRISCILA Mean Dilshad. Index 1.84 cm2/m2 LVOT Mean Grad 2.9 mmHg LVOT VTI 0.236 m LVOT Diam s 2.30 cm AoV Vmax 1.27 m/s Velocity Ratio 0.96 AoV Mean Dilshad. 0.88 m/s AoV Peak Grad 6.4 mmHg LVOT SV 98.24 mL AoV Mean Grad 3.5 mmHg AoV VTI 0.241 m AoV Area VTI 4.08 cm2 AoV Area/ BSA (VTI) 2.02 cm/m2 Mitral Valve MV DT 210 (160-240 msec) MR Vmax 4.52 m/s MV PHT 61 msec MR VTI 1.508 m MV Area PHT 3.61 cm2 MR Peak Grad 81.8 mmHg MV VTI 0.188 m MR Mean Grad 68.0 mmHg MV VTI Annulus 0.196 m MR PISA Radius 0.42 cm MV Area VTI 5.46 (4.0-6.0 cm2) MR EROA 0.09 cm2 MR Aliasing Velocity 0.35 m/s MR PISA 1.12 cm2 Pulmonary Valve PV Vmax 1.24 (0.5-1.5 m/s) RVOT Peak Gr. 2.36 mmHg PV Peak Grad 6.1 mmHg RVOT Mean Gr. 1.20 mmHg PV Mean Grad 3.0 mmHg RVOT VTI 0.174 m PV VTI 0.240 m RVOT Vmax 0.77 m/s Tricuspid Valve TR Peak Grad 25.8 mmHg TR Vmax 2.54 m/s RA Pressure 3.00 mmHg RVSP (TR) 28.9 mmHg
== END 2020-03-24 00:46 ==
PROVIDERS: PCP Nurse Practitioner; Visit Provider Nurse Practitioner
DX: R00.2 Palpitations (principal); Z82.49 Family history of ischemic heart disease and other diseases of the circulatory system; I34.0 Nonrheumatic mitral (valve) insufficiency
CPT/HCPCS: 93306

== ENCOUNTER 2020-05-25 01:39 | Outpatient (CLI) | payer BC, SELFPAY ==
[2020-05-26 11:51] LABS: COVID-19 RT-PCR UVMMC Result Negative (Negative)
== END 2020-05-25 01:40 | disposition home or self-care (01) ==
LOC: LBO 01:39
PROVIDERS: PCP Nurse Practitioner; Visit Provider Nurse Practitioner Gerontology
DX: Z20.822 Contact with and (suspected) exposure to COVID-19 (principal)
CPT/HCPCS: U0003

== ENCOUNTER 2020-05-28 07:40 | Day surgery (SDC) | payer BC, SELFPAY ==
[2020-05-28 08:04] VITALS: BP 144/91; PULSE 57; RESP 14; TEMP 36.4; O2SAT 98
--- NOTE | 2020-05-28 08:12 | HPE_ITS ---
Date of service: 05/28/20 Time of Service: 08:12 Assessment and Plan Assessment and plan (1) Bladder cancer: Status: Acute Assessment and plan: He has completed his induction series of mitomycin-C instillations. He presents now for cystoscopy with possible TURBT. 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 His tumor involved the lamina propria. There was concern that it might involve the muscularis, so he was referred to Dr. Garcia at [facility]. He had a repeat transurethral resection and a reread with restaining of his original tissue sample. It was felt that he did not have muscle invasive disease. Intravesical chemotherapy was recommended. He successfully completed a 6-week induction course of mitomycin-C (BCG was unavailable to us at that time). He presents for cystoscopy with possible TURBT. He has not seen any blood in his urine. He is able to sleep through the night without needing to get up to void. Review of Systems Narrative: No fevers or chills No vision change or dysphasia No diabetes or thyroid No shortness of breath, cough or hemoptysis No chest pain or palpitations No nausea, vomiting, hepatitis, ulcers, jaundice, diarrhea or constipation No seizures, strokes or peripheral neuropathy No bleeding disorders or anemia No gout PFSH Medical History Bladder cancer Bladder mass DVT of lower limb, acute Family history of heart disease Family history of malignant melanoma History of basal cell cancer 02/22/19 Dr Baxter for yearly skin f/u Palpitations Varicose vein of leg Surgical History Arthroplasty of knee R, year ago Dr. Ferguson, [facility] [place] Pt. reports it was a scope History of tonsillectomy and adenoidectomy Hx of colonoscopy Family History Mother , mitral valve surgery, pacemaker Heart disease Hypertension Father Melanoma Carcinoma of prostate COPD (chronic obstructive pulmonary disease) Social History Smoking/Tobacco Use Status: Former Tobacco Use Quit Date: 04/10/95 Tobacco: How many years used: 10 Smoking risk assessment performed?: Yes Alcohol Intake: current Alcohol Intake frequency: 3 or more drinks per day Alcohol type: beer Drug use: Occasionally Substance use type: marijuana Details: pt. used smokeless tobacco for ten years, has not used for a long time. Last few nights beer with dinner. Marijuana: weeks ago Adopted: No Household members: none Housing: house Number of Children: 0 Communication Needs: Corrective Lenses Do you need help understanding health information?: Never Pets and animals: Yes Pets and animals: cat(s) What type of physical activity do you participate in: none Seatbelt use: always Drive intox or ride w/intox day haul or farm charter bus driver: No Working smoke detector in home: Yes Carbon monox detector in home: Yes Do you feel safe at home: Yes Do you feel safe in your relationship?: Yes Meds Home Medications and Allergies Allergies Allergy/AdvReac Type Severity Reaction Status Date / Time No Known Allergies Allergy Unverified 05/28/20 08:03 Exam Const General: cooperative and comfortable Neck Neck: supple Resp Effort & Inspection: normal respiratory effort Auscultation: clear to auscultation bilaterally Cardio Rate: regular rate Rhythm: regular rhythm GI Palpation: soft and no masses Neuro General: patient alert, patient awake and patient oriented x3 Results Last Vital Signs Temp 36.4 C L 05/28/20 08:04 Pulse 57 L 05/28/20 08:04 Resp 14 05/28/20 08:04 BP 144/91 H 05/28/20 08:04 Pulse Ox 98 05/28/20 08:04 COVID-19 Screening Have you, or household traveled for leisure in last 14 days?: No Had IN PERSON contact w/suspected or confirmed C-19 person: No
[2020-05-28] MEDS: Lactated Ringers 1,000 ML 80 ML IV (08:20)
[2020-05-28] MEDS: ceFAZolin 1 GM/50 ML BAG IVPB (09:14)
[2020-05-28] MEDS: Lidocaine 2% Jelly 6 ML SYR (09:27)
--- NOTE | 2020-05-28 09:29 | BLADDER_PTH ---
PATIENT: Hiro Middleton LOC: [facility] U#:[id number] AGE/SX: 59/M ROOM: RE05/28/[address]: Maynor Salazar MD : 1960 BED: DIS: 05/28/2020 SPEC #: [id number] RECD: 05/28/20 13:01 STATUS: MAXIMO REWilliam #: [id number] DEZ: 05/28/20 09:[address]: Maynor Salazar DEPT: Surgical Specimen RECD BY: Korin Pinot ENTERED: 05/28/20 13:01 SP TYPE: Bladder OTHR DR: Genevieve Chapman APRN Tissues: 1 - BLADDER BIOPSY Procedures: GROSS AND MICRO LEVEL 4 Comments: [id number]
--- NOTE | 2020-05-28 09:29 | PAPNONF_PTH ---
PATIENT: Hiro Middleton LOC: [facility] U#:[id number] AGE/SX: 59/M ROOM: RE05/28/[address]: Maynor Salazar MD : 1960 BED: DIS: 05/28/2020 SPEC #: [id number] RECD: 05/28/20 13:16 STATUS: MAXIMO REWilliam #: [id number] DEZ: 05/28/20 09:[address]: Maynor Salazar DEPT: [facility] Cytology RECD BY: Korin Pinto ENTERED: 05/28/20 13:16 SP TYPE: KATERYNA PRINGLE DR: Genevieve Chapman APRN Tissues: 1 - BODY FLUID CYTO(SPUTUM/URINE)[facility] Procedures: BODY FLUID CYTO(URINE/SPUTUM) Comments: [id number] (TOTAL VOLUME = 100 ml's) (50 ml'S URINE & 50 ml's CYTOLYT ADDED IN 2 CONTAINERS)
--- NOTE | 2020-05-28 09:48 | W.PM.DSUDISC ---
Discharge Plan Disposition Patient Disposition: HOME Condition: Stable Discharge Details Reason For Visit: cystoscopy Attending Provider: Maynor Salazar Primary Care Provider: Genevieve Chapman Discharge Instructions Additional Instructions: Followup for pathology results @ 2 weeks Activity:: Activity as Tolerated Shower/Bathe:: 24 hours Diet:: As Tolerated Discharge Orders Discharge Orders: Discharge Order (Routine); Ordered 05/28/20 Ordered By: Maynor Salazar DS: Diagnosis Discharge Diagnosis (1) Bladder cancer: Status: Acute
--- NOTE | 2020-05-28 09:54 | ROE_ITS ---
Date of service: 05/28/20 Time of Service: 09:54 Operative Note Operative Note DATE OF PROCEDURE: 05/28/20 PRE-OP DIAGNOSIS: Bladder cancer POST-OP DIAGNOSIS: same PROCEDURE: Cystoscopy, bladder biopsy with fulguration of biopsy site SURGEON: Maynor Salazar ANESTHESIA TYPE: General:No Airway Refer to Anesthesia Record ESTIMATED BLOOD LOSS: 10 PATHOLOGY: other (1. urine for cytology 2. 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 His initial transurethral resection raised the question of muscularis invasion. Repeat resection and review of his initial tissue sample was more consistent with the lamina propria invasion. He was treated with an induction course of intravesical mitomycin-C. He presents now for repeat cystoscopy and possible transurethral resection Findings: healed scar left lateral bladder wall necrotic tissue at previous right bladder wall resection site Procedure Description: The patient was given preoperative IV antibiotics and brought to the operating room on 05/28/2020. He was given general anesthesia without intubation. He was placed in the dorsal lithotomy position. His genitalia was prepped and draped. 2% Xylocaine jelly was instilled into the urethra to act as a local anesthetic. A 22 [place] rigid cystoscope was then passed through the urethra into the bladder. The urethra and bladder were inspected with the 30 degree lens. The pendulous, bulbous membranous urethra was all appeared normal with no strictures. The prostatic urethra showed some elevation of the bladder neck but no significant lateral lobe enlargement. No papillary lesions were seen on the prostatic mucosa. The bladder neck was entered and the bladder mucosa was inspected. Urine was obtained from the bladder and sent to pathology for cytology examination. Both ureteral orifices appeared normal. No blood was seen coming from either side. On the left lateral wall of the bladder, a healed scar was identified. No papillary or nodular lesions were adjacent to the scar. On the right anterior bladder wall, there was a necrotic area corresponding to his previous resection site. There was slight hyperemia of the tissue at the edge of the necrotic area but no visible papillary or nodular mucosa. I used cold cup biopsy forceps to biopsy the edge of the necrotic area. These biopsies were sent to pathology for permanent section I then used a bipolar Bugbee electrode to cauterize the biopsy sites. Bimanual exam revealed no fixation of the bladder and no pelvic mass. The patient tolerated this procedure well with no complications. He was taken back to the day surgery unit in stable condition.
[2020-05-28] MEDS: Phenazopyridine 200 MG TAB PO (10:22)
[2020-05-28 10:24] VITALS: BP 123/81; PULSE 51; RESP 16; TEMP 36.6; O2SAT 97
== END 2020-05-28 10:59 | disposition home or self-care (01) ==
PROVIDERS: PCP Nurse Practitioner; Visit Provider Urology
PROC: 0TBB8ZZ Excision of Bladder, Via Natural or Artificial Opening Endoscopic (ICD-10-PCS; CPT 52204; principal; 2020-05-28 09:00)
DX: C67.9 Malignant neoplasm of bladder, unspecified (principal); Z86.718 Personal history of other venous thrombosis and embolism; Z87.891 Personal history of nicotine dependence
CPT/HCPCS: 52204; 88305; NC; 88104; J0690; J1885; J2001; J2405; J2704

== ENCOUNTER 2020-09-14 11:59 | Outpatient (REF) | payer BC, SELFPAY ==
--- NOTE | 2020-09-14 11:00 | PAPNONF_PTH ---
PATIENT: Hiro Middleton LOC: [facility] U#:[id number] AGE/SX: 60/M ROOM: RE09/14/[address]: Maynor Salazar MD : 1960 BED: DIS: 09/14/2020 SPEC #: [id number] RECD: 09/14/20 18:04 STATUS: MAXIMO REWilliam #: [id number] DEZ: 09/14/20 11:[address]: Maynor Salazar DEPT: ON LICENSE OF [facility] Cytology RECD BY: Korin Pinto ENTERED: 09/14/20 18:05 SP TYPE: KATERYNA PRINGLE DR: Genevieve Chapman APRN Tissues: 1 - BODY FLUID CYTO(SPUTUM/URINE)[facility] Procedures: BODY FLUID CYTO(URINE/SPUTUM) Comments: [id number] (TOTAL VOLUME = 60 ml's) (30 ml's URINE & 30 ml's CYTOLYT ADDED IN 2 CONTAINERS)
== END 2020-09-14 12:00 | disposition home or self-care (01) ==
LOC: LBN 11:59
PROVIDERS: PCP Nurse Practitioner; Visit Provider Urology
DX: Z85.51 Personal history of malignant neoplasm of bladder (principal)
CPT/HCPCS: 88104

== ENCOUNTER 2020-12-28 13:46 | Outpatient (REF) | payer BC, SELFPAY ==
--- NOTE | 2020-12-28 13:15 | PAPNONF_PTH ---
PATIENT: Hiro Middleton LOC: [facility] U#:[id number] AGE/SX: 60/M ROOM: RE12/28/[address]: Maynor Salazar MD : 1960 BED: DIS: 12/28/2020 SPEC #: [id number] RECD: 12/28/20 17:04 STATUS: MAXIMO BENOIT #: [id number] DEZ: 12/28/20 13:[address]: Maynor Salazar DEPT: [facility] Cytology RECD BY: Korin Pinto ENTERED: 12/28/20 17:05 SP TYPE: KATERYNA PRINGLE DR: Genevieve Chapman APRN Tissues: 1 - BODY FLUID CYTO(SPUTUM/URINE)[facility] Procedures: BODY FLUID CYTO(URINE/SPUTUM) Comments: [id number] (TOTAL VOLUME = 40 ml) (40 ml URINE & 40 ml CYTOLYT ADDED)
== END 2020-12-28 13:47 | disposition home or self-care (01) ==
LOC: LBN 13:46
PROVIDERS: PCP Nurse Practitioner; Referring Provider Urology; Visit Provider Urology
DX: Z85.51 Personal history of malignant neoplasm of bladder (principal)
CPT/HCPCS: 88104

== ENCOUNTER 2021-04-23 09:13 | Outpatient (REF) | payer BC, SELFPAY ==
--- NOTE | 2021-04-23 09:00 | PAPNONF_PTH ---
PATIENT: Hiro Middleton LOC: [facility] U#:[id number] AGE/SX: 60/M ROOM: RE04/23/[address]: Maynor Salazar MD : 1960 BED: DIS: 04/23/2021 SPEC #: [id number] RECD: 04/23/21 13:04 STATUS: MAXIMO REWilliam #: [id number] DEZ: 04/23/21 09:[address]: Maynor Salazar DEPT: [facility] Cytology RECD BY: Korin Pinto ENTERED: 04/23/21 13:04 SP TYPE: KATERYNA PRINGLE DR: Genevieve Chapman APRN Tissues: 1 - BODY FLUID CYTO(SPUTUM/URINE)[facility] Procedures: BODY FLUID CYTO(URINE/SPUTUM) Comments: [id number] (TOTAL VOLUME = 25 ml) (25 ml URINE & 25 ml CYTOLYT ADDED)
== END 2021-04-23 09:14 | disposition home or self-care (01) ==
LOC: LBN 09:13
PROVIDERS: PCP Nurse Practitioner; Visit Provider Urology
DX: C67.9 Malignant neoplasm of bladder, unspecified (principal)
CPT/HCPCS: 88104

== ENCOUNTER 2021-06-04 08:11 | Emergency (ER) | payer BC, SELFPAY ==
[2021-06-04 08:19] VITALS: BP 152/99; PULSE 77; RESP 16; TEMP 36.6; O2SAT 100
--- NOTE | 2021-06-04 08:30 | DI.US_ITS ---
Exam(s) US LOWER EXTREMITY VENOUS RT EXAM: US LOWER EXTREMITY VENOUS RT CLINICAL HISTORY: pain,bladder ca hx, RLE pain TECHNIQUE: Grayscale, color, and doppler imaging of the deep venous system of the lower extremity w as performed. COMPARISON: No exams were available for comparison FINDINGS: This is a positive-abnormal study. There is no compression augmentation of the right common femoral proximal femoral vein in the thigh. However, there is intraluminal thrombus evident within the mid and distal femoral vein as well as in the popliteal vein. Clot length is approximately 30 cm. The interrogated posterior tibial vein in the calf was patent. Greater saphenous vein also patent IMPRESSION: 1. Positive study for significant DVT as described above involving the mid and distal femoral vein i n the thigh and continues into the popliteal vein. Length of this clot is approximately 30 cm DATA REPOSITORY:
--- NOTE | 2021-06-04 08:52 | ED.GENADUL_ITS ---
Discharge Plan Disposition Patient Disposition: HOME Condition: Stable Discharge Details Clinical Impression: DVT of lower limb, acute, Bladder cancer Primary Care Provider: Genevieve Chapman ED Provider: Korin Wheatley Home Meds and New Rx's Prescriptions: New Eliquis DVT-PE Treat 30D Start 5 mg (74 tabs) tablets,dose pack See Rx Instructions .ROUTE .COMPLEX Qty: 74 0RF Rx Instructions: orally per package directions (received first 10 mg dose in ER) Discharge Instructions Additional Instructions: Please take Eliquis as prescribed Use caution when walking outside Do not recommend involving yourself in any potentially high impact activities such as skiing, climbing ladders, or winter hiking If you do hit your head, the recommendation is to be reassessed immediately Should you develop blood in your stool, weakness, dizziness, chest pain, headache, shortness of breath, you must be reassessed immediately Take the Eliquis as prescribed You have been administered the first dose of your 10 mg, follow the instructions otherwise in your packet Referrals: Maynor Salazar MD [ [facility] STAFF PHYSICIAN] - 1 day (dvt recurrent) Genevieve Chapman NP [Primary Care Provider] - Discharge Data Discharge Date/Time-TO BE ENTERED AT DEPARTURE: 06/04/21 10:02 Medical Decision Making Per radiology and ultrasound extensive DVT in right lower extremity Please on Eliquis I did consider pulmonary embolism however patient's oxygenation is 100% on room air, he is not tachypneic or tachycardic and denies any shortness of breath or chest discomfort I do not feel as though he warrants imaging for pulmonary embolism clinically at this visit She will need close outpatient follow-up, care in the next week or 2 weeks with his primary care physician He was given the first dose of Eliquis in the emergency room and Eliquis back up to go He was given very low threshold to return should he have shortness of breath or chest pain or any worsening symptoms He is discharged home in stable condition with vitals, ambulatory BP I did discuss with of bleeding with Eliquis and patient expressed understanding Medical Records Medical records reviewed: Yes I reviewed the patient's medical records. Lab Data Lab results reviewed: Yes I reviewed the patient's lab results. HPI General Date/Time Provider Initiated Documentation: 06/04/21 08:24 . HPI Narrative: This 60-year-old gentleman presents with right lower extremity pain. He has pain from his thigh and down to his calf. Denies any chest pain or shortness of breath. Denies any paresthesias. Denies any skin discoloration. Patient does have a history of bladder cancer and he is receiving immunotherapy. He has a prior history of DVT, 2020, shortly thereafter he was diagnosed with bladder cancer. He denies prior history of pulmonary embolism. Again specifically denies any short discomfort. Symptoms began this morning. Describes it as cramping pain. Related Data Home Medications Medication Instructions Recorded Confirmed apixaban 5 mg (74 tabs) tablets in See Rx Instructions .ROUTE 06/04/21 a dose pack (Eliquis DVT-PE Treat .COMPLEX #74 dose pk 30D Start) Previous Rx's Medication Instructions Recorded apixaban 5 mg (74 tabs) tablets in See Rx Instructions .ROUTE 06/04/21 a dose pack (Eliquis DVT-PE Treat .COMPLEX #74 dose pk 30D Start) Allergies Allergy/AdvReac Type Severity Reaction Status Date / Time No Known Allergies Allergy Unverified 06/04/21 08:23 General Stated Complaint: Vascular SIVAKUMAR: 3 Review of Systems All systems reviewed & are unremarkable except as noted in HPI and below PFSH All Active Problems (Updated 06/04/21 @ 09:44 by GAGE Ricardo) Feeling faint (Acute) Palpitations (Acute) Family history of heart disease (Acute) Dysuria (Acute) Bladder cancer (Acute) Low back pain (Acute) Palpitations (Acute) Tinea unguium (Acute) 02/22/19 Dr Baxter Squamous cell carcinoma (Acute 04/22/13) R ant chest wall; 2012 Dr. Baxter Derm [facility], 03/2021 exc H/O nicotine dependence (Acute 04/22/13) Other and unspecified hyperlipidemia (Acute 07/25/11) Diverticulosis of colon without diverticulitis (Acute 04/22/13) Incidental finding 2012 colonoscopy Knee pain, chronic (Acute 05/13/13) MRI 05/10/2013; [place] [facility] effusion, medial meniscus, mild OA, severe ACL thinning, chronic sprain injury MCL LCL Gross hematuria (Acute) Bladder mass (Acute) Varicose vein of leg (Acute) DVT of lower limb, acute (Acute) Medical History (Updated 06/04/21 @ 09:44 by GAGE Ricardo) Family history of malignant melanoma History of basal cell cancer 02/22/19, 04/15/21 Dr Baxter for yearly skin f/u Surgical History (Updated 03/10/21 @ 15:06 by Asya Harmon RN) Arthroplasty of knee R, year ago Dr. Ferguson, [place] Pt. reports it was a scope History of biopsy (03/09/21) R upper anterior chest Dr Baxter History of tonsillectomy and adenoidectomy Hx of colonoscopy Family History Mother , mitral valve surgery, pacemaker Heart disease Hypertension Father Melanoma Carcinoma of prostate COPD (chronic obstructive pulmonary disease) Social History Smoking/Tobacco Use Status: Former Tobacco Use Quit Date: 04/10/95 Tobacco: How many years used: 10 Smoking risk assessment performed?: Yes Alcohol Intake: current Alcohol Intake frequency: 0-2 drinks per day Alcohol type: beer Drug use: Occasionally Substance use type: marijuana Details: pt. used smokeless tobacco for ten years, has not used for a long time. Last few nights beer with dinner. 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 Working smoke detector in home: Yes Carbon monox detector in home: Yes Do you feel safe at home: Yes Do you feel safe in your relationship?: Yes Exam Const General: cooperative, comfortable and no acute distress Eyes Sclera: sclerae normal Resp Effort & Inspection: normal respiratory effort Auscultation: clear to auscultation bilaterally Cardio Rate: regular rate Rhythm: regular rhythm GI Other: No abdominal bruit or pulsatile mass Skin General skin exam: no rashes or lesions noted Neuro General: patient alert and patient oriented x3 Extrem Other: Right lower extremity with tenderness to right calf, popliteal region, and right upper extremity, mild swelling noted to right calf, DP and PT pulses intact, sensation intact distally, cap refill intact distally to bilateral lower extremities Course Vital Signs Vital signs: Vital Signs Temperature 36.6 C 06/04/21 08:19 Pulse 77 06/04/21 08:19 Respiratory Rate 16 06/04/21 08:19 Blood Pressure 152/99 H 06/04/21 08:19 Pulse Oximetry 100 06/04/21 08:19 Temperature 36.6 C 06/04/21 08:19 Temperature Source Skin 06/04/21 08:19 Pulse 77 06/04/21 08:19 Respiratory Rate 16 06/04/21 08:19 Respiratory Effort 06/04/21 08:50 Blood Pressure 152/99 H 06/04/21 08:19 Blood Pressure Position Sitting 06/04/21 08:19 Pulse Oximetry 100 06/04/21 08:19 Oxygen Delivery Method Room Air 06/04/21 08:19 Oxygen Flow Rate 0 06/04/21 08:19 Pain Level 7 06/04/21 08:19
[2021-06-04 09:09] VITALS: RESP 14
[2021-06-04 09:16] VITALS: BP 152/99; PULSE 72; RESP 14; TEMP 37.1; O2SAT 98
--- NOTE | 2021-06-04 09:48 | NUR.NOTE ---
Nursing Note: PT INFO FAXED TO PT PCP TO BE SEEN LORIE FOR DVT. AMADOR, ED
[2021-06-04] MEDS: Apixaban 5 MG TAB 10 MG PO (09:56)
[2021-06-04 10:02] VITALS: BP 152/99; PULSE 72; RESP 14; TEMP 37.1; O2SAT 98
== END 2021-06-04 10:02 | disposition home or self-care (01) ==
PROVIDERS: Emergency Provider Physician Assistant; PCP Nurse Practitioner
DX: I82.491 Acute embolism and thrombosis of other specified deep vein of right lower extremity (principal)
CPT/HCPCS: 99284; 93971; 99283

== ENCOUNTER 2021-06-11 13:46 | Outpatient (CLI) | payer BC, SELFPAY ==
--- NOTE | 2021-06-11 13:45 | RT.EKG_ITS ---
APPROVED REPORT Exam: Resting ECG Reason for Exam: palpitations Patient Location: O HR:78 bpm ECG Measurements Heart Rate 78 AXIS LA 155 P 35 QRSd 138 QRS 66 QT 395 T 18 QTc 450 Conclusion Sinus rhythm...normal P axis, V-rate 50- 99 Right bundle branch block...QRSd>120, terminal axis(90,270)
== END 2021-06-11 13:47 | disposition home or self-care (01) ==
LOC: DI.CARD 13:47
PROVIDERS: PCP Nurse Practitioner; Visit Provider Internal Medicine Cardiovascular Disease
DX: R00.2 Palpitations (principal); I45.19 Other right bundle-branch block; R94.31 Abnormal electrocardiogram [ECG] [EKG]
CPT/HCPCS: 93010

== ENCOUNTER 2021-06-21 01:53 | Outpatient (CLI) | payer BC, SELFPAY ==
[2021-06-21 07:25] LABS: HCT 47.7 % (40.0-50.0); HGB 15.5 g/dL (13.5-17.5); MCH 28.6 pg (27.0-33.0); MCHC 32.5 % (32.0-36.0); MPV 10.2 fL (8.0-11.0); Platelet Count 229 10^3/uL (130-400); RBC 5.42 10^6/uL (4.36-5.78); RDW 12.1 % (11.8-14.1); RDW-SD 38.7 fL; WBC 5.58 10^3/uL (4.4-10.8)
[2021-06-21 08:27] LABS: ALT 15 U/L (16-63); AST 17 U/L (15-37); Albumin 3.8 g/dL (3.4-5.0); Alkaline Phosphatase 73 U/L (46-116); BUN 12 mg/dL (7-18); Bilirubin, Total 0.8 mg/dL (0.2-1.0); CREATININE 0.8 mg/dL (0.70-1.30); Calculated LDL 121 mg/dL (<100); Chloride 104 mmol/L (98-107); Cholesterol 197 mg/dL (<200); Glucose 92 mg/dL (74-106); HDL Cholesterol 57 mg/dL (40-60); Sodium 140 mmol/L (136-145); TSH (W/Ref FT4) 0.84 uIU/mL (0.36-3.74); Total Protein 7.1 g/dL (6.4-8.2); Triglyceride 95 mg/dL (<150)
[2021-06-21 19:02] LABS: PSA, Screening 2.3 ng/mL (0.0-3.5)
== END 2021-06-21 01:54 | disposition home or self-care (01) ==
LOC: LBO 01:53
PROVIDERS: PCP Nurse Practitioner; Visit Provider Nurse Practitioner
DX: E78.5 Hyperlipidemia, unspecified (principal); R00.2 Palpitations; I10 Essential (primary) hypertension; Z80.42 Family history of malignant neoplasm of prostate; Z12.5 Encounter for screening for malignant neoplasm of prostate
CPT/HCPCS: 36415; 80053; 80061; 84153; 85027; 84443

== ENCOUNTER → 2021-08-06 00:42 | Outpatient (CLI) | payer BC, SELFPAY ==
--- NOTE | 2021-08-06 | DI.CT_ITS ---
Exam(s) CT ABDOMEN PELVIS W EXAM: CT ABDOMEN PELVIS W CLINICAL HISTORY: DVT FEM VEIN RLE, I82.411, BLADDER CA, EVAL ABD MASS/ADENOPATHY/VENOUS OBST. TECHNIQUE: Imaging Protocol: Axial computed tomography images with coronal and sagittal reformatted images were created and reviewed. Venous phase images performed from lung bases through ischial tuberosities. Delayed images performed through the pelvis. CONTRAST MATERIAL: Intravenous: Omnipaque 350 Contrast volume:100 ml Oral: no COMPARISON: CT CT CHEST PE CTA from 02/28/2020 FINDINGS: ABDOMEN: Lung Bases: Normal where visualized. Liver: Normal density. No measurable mass. Gallbladder and biliary tract: No radiodense calculus or dilation. Pancreas: Normal density, no abnormal calcifications or inflammatory process. Spleen: Normal. Kidneys: Normal size, contour and axis. No radiodense stones or obstructive uropathy. No masses seen. Adrenal glands: No masses seen. Abdominal Aorta: Abdominal portion non-dilated. PELVIS: Bladder: Diffuse wall thickening. No calculi.No focal mass. Air is seen within the bladder, presumed secondary to recent catheterization. Bowel: Diverticulosis. No evidence of diverticulitis. No obstruction or bowel wall thickening. Appe ndix normal. Peritoneal cavity: No ascites, collection or mesenteric inflammatory response. Bones: Within normal limits for age. Reproductive organs: Prostate not enlarged however there is a TURP defect.. Lymph nodes: Unremarkable. Venous structures: Normal diameter. No gross filling defects. Impression: Diffuse bladder wall thickening without visible focal mass. No evidence of adenopathy. RADIATION DOSE DELIVERED: 1,448.96mGy.cm Total DLP DATA REPOSITORY: All CT scans at this facility are submitted to the National Radiology Data Registry (NRDR) Dose Index Registry (DIR) with the [employer] (ACR). RADIATION OPTIMIZATION: All CT scans at this facility use at least one of these dose optimization te chniques: automated exposure control; mA and/or kV adjustment per patient size (includes targeted exa ms where dose is matched to clinical indication); or iterative reconstruction.
[2021-08-06 14:30] LABS: CREATININE 0.8 mg/dL (0.70-1.30)
[2021-08-06] MEDS: Omnipaque 350 MG/ML 100 ML BTL IV (15:12)
== END ==
PROVIDERS: PCP Nurse Practitioner; Visit Provider Surgery Vascular Surgery
DX: Z01.812 Encounter for preprocedural laboratory examination (principal); N32.89 Other specified disorders of bladder; Z85.51 Personal history of malignant neoplasm of bladder; Z86.718 Personal history of other venous thrombosis and embolism
CPT/HCPCS: 74177; 82565; J3490

== ENCOUNTER 2021-11-19 10:05 | Outpatient (REF) | payer BC, SELFPAY ==
--- NOTE | 2021-11-19 09:15 | PAPNONF_PTH ---
PATIENT: Hiro Middleton LOC: [facility] U#:[id number] AGE/SX: 61/M ROOM: RE11/19/[address]: Maynor Salazar MD : 1960 BED: DIS: 11/19/2021 SPEC #: [id number] RECD: 11/19/21 13:01 STATUS: MAXIMO REWilliam #: [id number] DEZ: 11/19/21 09:[address]: Maynor Salazar DEPT: [facility] Cytology RECD BY: Korin Pinto ENTERED: 11/19/21 13:02 SP TYPE: KATERYNA PRINGLE DR: Genevieve Chapman APRN Tissues: 1 - BODY FLUID CYTO(SPUTUM/URINE)[facility] Procedures: BODY FLUID CYTO(URINE/SPUTUM) Comments: [id number] (TOTAL VOLUME = 40 ml) (40 ml URINE & 40 cm CYTOLYT ADDED)
== END 2021-11-19 10:06 | disposition home or self-care (01) ==
LOC: LBN 10:05
PROVIDERS: PCP Nurse Practitioner; Visit Provider Urology
DX: Z12.6 Encounter for screening for malignant neoplasm of bladder (principal)
CPT/HCPCS: 88104

== ENCOUNTER 2022-05-06 10:40 | Day surgery (SDC) | payer BC, SELFPAY ==
[2022-05-06 11:35] VITALS: BP 141/100; PULSE 65; RESP 16; TEMP 36.3; O2SAT 98
[2022-05-06] MEDS: Lactated Ringers 1,000 ML 80 ML IV (12:15)
--- NOTE | 2022-05-06 13:13 | W.COLOREPORT ---
Date of service: 05/06/22 Time of Service: 13:30 Colonoscopy Report Procedure Description: Procedures performed: 1. Colonoscopy Preoperative diagnosis: Surveillance colonoscopy Postoperative diagnosis: Sigmoid diverticulosis Surgeon: Noman Roberts Anesthesia: Gabi Indication for procedure: 61-year-old man does not have any symptoms and last colonoscopy was normal. He is due for surveillance. He has a remote family history of a grandfather who had colon cancer at a very elderly age. He has never had intra-abdominal surgery but does have a history of bladder cancer. Findings: Normal ileocecal valve.? No polyps. Mild diverticular disease in the sigmoid colon.? Normal Rectum. Surveillance/follow-up recommendations: 10 years Complications: None Blood loss: Minimal Prep: Excellent Procedure in detail: Written consent was obtained from the patient who was in agreement with the risks, benefits and indications of the procedure.? We went to the endoscopy suite and laid the patient in left lateral decubitus position.? Anesthesia was administered which was tolerated well.? A timeout was performed and when we are all in agreement we began the procedure. Digital rectal exam and visual examination was performed and within normal limits.? A well?lubricated colonoscope was advanced without difficulty all the way to the cecum identified by the ileocecal valve, and triangular folds and appendiceal orifice.? I was able to identify the ileocecal valve but unable to intubate the terminal ileum. The scope was then slowly withdrawn.?? Retroflexion was performed in the rectum.? The findings/interventions are noted above. The scope was then removed and the patient tolerated the procedure well and was then taken back to the PACU in hemodynamically stable condition.
--- NOTE | 2022-05-06 13:45 | ANES.PREOP_ITS ---
General Info Date of Service Date Performed: 05/06/22 Height: 5 ft 10 in Weight: 91.3 kg Body Mass Index (BMI): 28.8 Surgical Procedure: Operation Date: 05/06/22 12:50 Proposed Procedure Side Surgeon p Hope Roberts MD Meds Allergies and Home Medications Allergies Allergy/AdvReac Type Severity Reaction Status Date / Time clindamycin AdvReac Intermediate Other (See Verified 04/28/22 09:01 Comment) Home Medication Medication Instructions Recorded apixaban 2.5 mg tablet 2.5 mg PO BID 12/30/21 bisacodyl 5 mg tablet,delayed 5 mg PO ONCE #4 tabs 04/28/22 release (Dulcolax (bisacodyl)) polyethylene glycol 3350 17 17 g PO ONCE #238 grams 04/28/22 gram/dose oral powder Current Visit Medications: Current Medications Generic Name Dose Route Start Last Admin Trade Name Freq PRN Reason Stop Dose Admin Ringer's Solution 1,000 mls @ 80 mls/hr 05/06/22 06:00 05/06/22 12:15 IV 06/04/22 23:59 80 mls/hr INFUSION JERAMY Administration IV Miscellaneous Supplies 1 each 05/06/22 06:00 Iv Access IV 06/04/22 23:59 DIRECTED JERAMY Sodium Chloride 0 ml 05/06/22 06:00 Normal Saline Flush 10 Ml Syr IV 06/04/22 23:59 PRN PRN Sodium Chloride 0 ml 05/06/22 06:00 Normal Saline 10 Ml Vial IJ 06/04/22 23:59 DIRECTED PRN Sterile Water 0 ml 05/06/22 06:00 Water,Injection,Sterile 10 Ml Vial IJ 06/04/22 23:59 DIRECTED PRN PFSH Active Problems Active Problems: Problem Status Onset Code Low back pain M54.5 Palpitations R00.2 Tinea unguium B35.1 Squamous cell carcinoma 04/22/13 H/O nicotine dependence 04/22/13 Z87.891 Other and unspecified hyperlipidemia 07/25/11 E78.5 Diverticulosis of colon without diverticulitis 04/22/13 K57.30 Knee pain, chronic 05/13/13 M25.569, G89.29 DVT of lower limb, acute I82.409 Varicose vein of leg I83.90 Bladder cancer C67.9 Dysuria R30.0 Family history of heart disease Z82.49 Palpitations R00.2 Feeling faint R42 Medical History Medical History Family history of malignant melanoma History of basal cell cancer 02/22/19, 04/15/21 Dr Baxter for yearly skin f/u Surgical History Surgical History (Updated 05/06/22 @ 11:52 by Ursula Hooks) Arthroplasty of knee R, year ago Dr. Ferguson, [facility] [place] [facility]. reports it was a scope History of biopsy (03/09/21) R upper anterior chest Dr Baxter History of tonsillectomy and adenoidectomy Hx of colonoscopy Hx of cystoscopy Tobacco Smoking/Tobacco Use Status: Former Tobacco Use Alcohol Alcohol Intake: current Alcohol intake frequency: 0-2 drinks per day Alcohol type: beer Substance Use Substance use: Occasionally Substance use type: marijuana Vital Signs and Lab Results Vital Signs Most Recent Vital Signs in EMR: Most Recent Vital Signs Temp Pulse Resp BP Pulse Ox 36.3 C L 65 16 141/100 H 98 05/06/22 11:35 05/06/22 11:35 05/06/22 11:35 05/06/22 11:35 05/06/22 11:35 Lab Results Blood Type / Crossmatch: No Data to Display Complete Blood Count: No Data to Display Complete Metabolic Panel: No Data to Display Liver Function Panel: No Data to Display Coagulation Panel: No Data to Display Cardiac Panel: No Data to Display Arterial Blood Gas: No Data to Display Venous Blood Gas: No Data to Display Pancreas Panel: No Data to Display Thyroid Panel: No Data to Display Infectious Disease: No Data to Display Blood Cultures: No Data to Display Toxicology Panel: No Data to Display Imaging and Studies Imaging and Studies Study information below may be from another EMR and interpreted by another provider. Please see original notes in EMR for more complete details. EKG Summary: Sinus rhythm...normal P axis, V-rate 50- 99 Right bundle branch block...QRSd>120, terminal axis(90,270) Echocardiogram Summary: 03/29 Conclusion Left Ventricle : The left ventricle is normal size. The left ventricular systolic function is normal. The left ventricular ejection fraction is within the normal range. There is normal left ventricular wall thickness. There is normal LV segmental wall motion. The left ventricular diastolic function is normal. LVEF is 60%. Right Ventricle : The right ventricle is normal size. The right ventricular systolic function is normal. The RVSP is 28.9mmHg. Atria : The left atrium size is normal. The right atrium size is normal. Mitral Valve : The mitral valve is normal in structure. Mild mitral regurgitation. No evidence of mitral valve stenosis. Great Vessels : Aortic root is mildly dilated. The ascending aorta is dilated (4.2cm). Aortic arch is normal in caliber. IVC is normal in size and collapses >50% with inspiration. See remainder of study for further details Anesthesia Assessment and Plan Anesthesia History Personal History: No History of Anesthesia Complications Family History: No Family History of Anesthesia Complications Exercise Tolerance Exercise Tolerance: Metabolic Equivalents>4 Pertinent Negatives Pertinent Negatives: No Symptoms of GERD Cardiac & Pulmonary Exam Cardiac Exam: Normal S1/S2 Heart Sounds Pulmonary Exam: Clear Bilateral Breath Sounds Implantable Cardiac Device Does patient have a Pacemaker or an ICD?: No Airway Exam Known Difficult Airway: No Mallampati Class: 2 Mouth Opening: Normal (> 3cm) Thyromental Distance: Greater than 3 cm Facial Hair: Full Barrios Neck Range of Motion: Full ROM Neck Circumference: Normal Teeth Condition: Normal Dentition ASA Classification ASA Score: ASA 2 Emergency Case?: No NPO Status NPO Status: NPO Clears >2 hours, Solids >8 hours Anesthesia Plan Resuscitation Status: Full Code Anesthesia Technique: General Anesthesia Airway Planned: Natural Airway Monitors Used: Standard Monitors
[2022-05-06 13:52] VITALS: BMI 28.8
[2022-05-06 14:26] VITALS: BP 131/88; PULSE 72; RESP 16; TEMP 36.3; O2SAT 97
--- NOTE | 2022-05-06 14:34 | W.ANESPOSTOP ---
Postoperative Evaluation Date, Time and Location Date Performed: 05/06/22 Time Performed: 14:34 Patient Location: Day Surgery Unit Vital Signs Most Recent Imported Vital Signs: Most Recent Vital Signs Temp Pulse Resp BP Pulse Ox 36.3 C L 72 16 131/88 97 05/06/22 14:26 05/06/22 14:26 05/06/22 14:05/06/22 14:05/06/22 14:26 Pain Score Most Recent Pain Score: Most Recent Pain Score Pain Level 0 05/06/22 14:26 Assessment Mental Status: Awake (Alert & Oriented to Patient Baseline) Airway and Respiratory Function: Patent airway with normal (patient baseline) respiratory exam Cardiovascular Function: Hemodynamically Stable Hydration Status: Adequately Hydrated Nausea & Vomiting: No Nausea or Vomiting Pain: Pt. Denies Any Pain Peripheral Nerve Block: Patient did not receive a nerve block
[2022-05-06 15:04] VITALS: BP 143/87; PULSE 63; RESP 16; TEMP 36.4; O2SAT 99
== END 2022-05-06 15:35 | disposition home or self-care (01) ==
PROVIDERS: PCP Nurse Practitioner; Visit Provider Student in an Organized Health Care Education/Training Program
PROC: 0DJD8ZZ Inspection of Lower Intestinal Tract, Via Natural or Artificial Opening Endoscopic (ICD-10-PCS; CPT 45378; principal; 2022-05-06 12:45)
DX: Z12.11 Encounter for screening for malignant neoplasm of colon (principal); K57.30 Diverticulosis of large intestine without perforation or abscess without bleeding; Z80.0 Family history of malignant neoplasm of digestive organs; Z85.51 Personal history of malignant neoplasm of bladder
CPT/HCPCS: 45378

== ENCOUNTER 2022-12-06 09:25 | Outpatient (REF) | payer BC, SELFPAY ==
--- NOTE | 2022-12-06 09:20 | PAPNONF_PTH ---
PATIENT: Hiro Middleton LOC: [facility] U#:[id number] AGE/SX: 62/M ROOM: RE12/06/[address]: Dominique Del Rio MD : 1960 BED: DIS: 12/06/2022 SPEC #: [id number] RECD: 12/06/22 13:23 STATUS: MAXIMO BENOIT #: [id number] DEZ: 12/06/22 09:[address]: Dominique Del Rio DEPT: [facility] Cytology RECD BY: Korin Pinto ENTERED: 12/06/22 13:23 SP TYPE: KATERYNA PRINGLE DR: Genevieve Chapman APRN Tissues: 1 - BODY FLUID CYTO(SPUTUM/URINE)[facility] Procedures: BODY FLUID CYTO(URINE/SPUTUM) Comments: [id number] (TV = 55 ml, 30 cm CYTOLYTE ADDED) (REFRIGERATED)
== END 2022-12-06 09:26 | disposition home or self-care (01) ==
LOC: LBN 09:25
PROVIDERS: PCP Nurse Practitioner; Visit Provider Internal Medicine Cardiovascular Disease
DX: Z85.51 Personal history of malignant neoplasm of bladder (principal)
CPT/HCPCS: 88104

== ENCOUNTER 2023-01-01 12:04 | Emergency (ER) | payer BC, SELFPAY ==
[2023-01-01] VITALS (11 sets, daily range): BP systolic 149–182; BP diastolic 97–119; PULSE 72–85; RESP 12–20; TEMP 37.3; O2SAT 94–99
--- NOTE | 2023-01-01 12:19 | W.ED.GENAD ---
Discharge Plan Disposition Patient Disposition: Home Condition: Stable Discharge Details Clinical Impression: Foreign body sensation in throat Primary Care Provider: Genevieve Chapman ED Provider: Nini Navarro Home Meds and New Rx's Prescriptions: No Action apixaban 2.5 mg tablet 2.5 mg PO BID Qty: 180 3RF Discharge Instructions Instructions: Esophageal Foreign Body (ED) Additional Instructions: At this time it appears that the foreign body was dislodged after taking some effervescent granules. Please return for any additional problems swallowing or handling liquids, or any concerns. Follow up with primary care provider in 3-5 days. Return to ED sooner if any worsening or concerns. Increase oral fluids. 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 Patient reports that he was eating a piece of leftover steak felt to get lodged and has been unable to swallow water. He is speaking in full sentences lungs are clear to auscultation bilaterally. He denies that this is happened to him in the past. Surgical history includes tonsillectomy adenoidectomy, arthroplasty of knee. Will attempt Effervescent granules PO x 1 will consider additional dose if needed. Labs and Soft tissue neck XR ordered. 1225: Reported that symptoms are resolved after one dose of Effervescent granules. On patient re-evaluation, he reports improvement of foreign body sensation. Will continue to observe and plan to discharge patient home. Zofran and XR canceled. This text was generated using [employer] dictation system, please disregard any oddities of phrase or misspellings. Lab Data Lab results reviewed: Yes I reviewed the patient's lab results. Labs: Laboratory Tests Range/Units 01/01/23 01/01/23 12:20 12:20 WBC (4.4-10.8) 10^3/uL 5.07 RBC (4.36-5.78) 10^6/uL 5.53 Hgb (13.5-17.5) g/dL 16.3 Hct (40.0-50.0) % 47.2 MCV (80-95) fL 85 MCH (27.0-33.0) pg 29.5 MCHC (32.0-36.0) % 34.5 RDW (11.8-14.1) % 12.5 Plt Count (130-400) 10^3/uL 203 MPV (8.0-11.0) fL 10.2 Immature Gran % 0.4 Neutrophils % 50.0 Lymphocytes % 38.7 Monocytes % 8.3 Eosinophils % 1.8 Basophils % 0.8 Nucleated RBC % (0.0-0.3) % 0.0 Absolute Neutrophils (1.2-6.7) 10^3/uL 2.54 Absolute Lymphocytes (1.2-3.4) 10^3/uL 1.96 Absolute Monocytes (0.1-0.8) 10^3/uL 0.42 Absolute Eosinophils (0.0-0.7) 10^3/uL 0.09 Absolute Basophils (0.0-0.2) 10^3/uL 0.04 Sodium (136-145) mmol/L 138 Potassium (3.5-5.1) mmol/L 4.8 Chloride (98-107) mmol/L 100 Carbon Dioxide (21.0-32.0) mmol/L 29.5 Anion Gap (3-11) mmol/L 8.5 BUN (7-18) mg/dL 19 H Creatinine (0.70-1.30) mg/dL 1.1 Est GFR (CKD-EPI 2020) (mL/min/1.73m2) 76.37 Glucose (74-106) mg/dL 110 H Calcium (8.5-10.1) mg/dL 10.2 H Magnesium (1.8-2.4) mg/dL 2.0 Total Bilirubin (0.2-1.0) mg/dL 1.2 H AST (15-37) U/L 23 ALT (16-63) U/L 20 Alkaline Phosphatase (46-116) U/L 62 Total Protein (6.4-8.2) g/dL 8.1 Albumin (3.4-5.0) g/dL 4.3 HPI General Mode of arrival: ambulatory. Date/Time Provider Initiated Documentation: 01/01/23 12:09. Limitations to Documentation: no limitations. Information obtained by: patient, family, RN notes reviewed and old records reviewed. 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 Patient reports that he was eating a piece of leftover steak felt to get lodged and has been unable to swallow water. He is speaking in full sentences lungs are clear to auscultation bilaterally. He denies that this is happened to him in the past. Surgical history includes tonsillectomy adenoidectomy, arthroplasty of knee. Related Data Home Medications Medication Instructions Recorded Confirmed apixaban 2.5 mg tablet 2.5 mg PO BID #180 tabs 06/21/22 01/01/23 Previous Rx's Medication Instructions Recorded apixaban 2.5 mg tablet 2.5 mg PO BID #180 tabs 06/21/22 Allergies Allergy/AdvReac Type Severity Reaction Status Date / Time clindamycin AdvReac Intermediate Other (See Verified 01/01/23 12:08 Comment) General Stated Complaint: [facility] SIVAKUMAR: 2 Review of Systems All systems reviewed & are unremarkable except as noted in HPI and below ENT Ears, Nose, Mouth, and Throat: Reports as per HPI and Reports dysphagia Gastrointestinal Gastrointestinal: Reports dysphagia PFSH All Active Problems (Updated 01/01/23 @ 12:35 by Nini Navarro NP) Foreign body sensation in throat (Acute) Right-sided tinnitus (Acute) Low back pain (Acute) Palpitations (Acute) Tinea unguium (Acute) 02/22/19 Dr Baxter Squamous cell carcinoma (Acute 04/22/13) R ant chest wall; 2012 Dr. Baxter [place] [facility] [place] exc H/O nicotine dependence (Acute 04/22/13) Other and unspecified hyperlipidemia (Acute 07/25/11) Diverticulosis of colon without diverticulitis (Acute 04/22/13) Incidental finding 2012 colonoscopy Knee pain, chronic (Acute 05/13/13) MRI 05/10/2013; [facility] Open [facility] effusion, medial meniscus, mild OA, severe ACL thinning, chronic sprain injury MCL LCL DVT of lower limb, acute (Acute) 06/25/21 Acute deep vein thrombosis of femoral vein of right lower extremity - [facility] [place] note Varicose vein of leg (Acute) Bladder cancer (Acute) Dysuria (Acute) Family history of heart disease (Acute) Palpitations (Acute) Feeling faint (Acute) Medical History Family history of malignant melanoma History of basal cell cancer 02/22/19, 04/15/21 Dr Baxter for yearly skin f/u Surgical History Arthroplasty of knee R, year ago Dr. Ferguson, [facility] [place] [facility]. reports it was a scope History of biopsy (03/09/21) R upper anterior chest Dr Baxter History of tonsillectomy and adenoidectomy Hx of colonoscopy Hx of cystoscopy Family History Mother , mitral valve surgery, pacemaker Heart disease Hypertension Father Melanoma Carcinoma of prostate COPD (chronic obstructive pulmonary disease) Social History Smoking/Tobacco Use Status: Former Tobacco Use Quit Date: 04/10/95 Tobacco: How many years used: 10 Smoking risk assessment performed?: Yes Alcohol Intake: current Alcohol Intake frequency: 0-2 drinks per day Alcohol type: beer Drug use: Occasionally Substance use type: marijuana Adopted: No Household members: none Housing: house Number of Children: 0 Communication Needs: Corrective Lenses Do you need help understanding health information?: Never Pets and animals: Yes Pets and animals: cat(s) What type of physical activity do you participate in: none Seatbelt use: always Drive intox or ride w/intox truss driver helper: No Working smoke detector in home: Yes Carbon monox detector in home: Yes Do you feel safe at home: Yes Do you feel safe in your relationship?: Yes Exam Narrative Exam Narrative: Constitutional: Alert and oriented x3. Appears stated age. Normal body habitus. Head: Normocephalic, no trauma. Eyes: Pupils PERRL, Red reflex noted, EOM's intact. Eyelids symmetrical without lesions, discharge, or swelling. ENT: Bilateral TM's WNL, External ear normal to inspection, no mastoid TTP, swelling, or erythema, Nasal turbinates WNL, no nasal discharge. Normal dentition, Posterior pharynx WNL, no exudate. Chest: RRR, Normal S1, S2, distal pulses intact. Resp: Lungs clear to auscultation bilaterally, no wheezes, rales, or rhonchi. Abdomen: Soft, non-distended, Normoactive bowel sounds all 4 quads. Musculoskeletal: Normal gait, 5/5 strength to all four extremities. Skin: No suspicious rashes or lesions. Capillary refill less than 2 sec. Neurologic: Cranial nerves II-XII intact. Alert and oriented x 3. Motor: No deficits noted. Sensory: Intact bilaterally all 4 extremities. Reflexes: DTR's intact bilaterally.. Hematologic/Lymphatic: No ecchymosis, no lymphadenopathy. Course Vital Signs Vital signs: Vital Signs Temperature 37.3 C 01/01/23 12:05 Pulse 85 01/01/23 12:05 Respiratory Rate 20 01/01/23 12:05 Blood Pressure 167/119 H 01/01/23 12:05 Pulse Oximetry 99 01/01/23 12:05 Temperature 37.3 C 01/01/23 12:05 Temperature Source Skin 01/01/23 12:05 Pulse 85 01/01/23 12:05 Respiratory Rate 20 01/01/23 12:05 Blood Pressure 167/119 H 01/01/23 12:05 Pulse Oximetry 99 01/01/23 12:05 Oxygen Delivery Method Room Air 01/01/23 12:05 Oxygen Flow Rate 0 01/01/23 12:05
[2023-01-01 12:26] LABS: Abs Immature Grans 0.02 10^3/uL (0.0-0.06); Absolute Basophil Count 0.04 10^3/uL (0.0-0.2); Absolute Eosinophil Count 0.09 10^3/uL (0.0-0.7); Absolute Lymphocyte Count 1.96 10^3/uL (1.2-3.4); Absolute Monocyte Count 0.42 10^3/uL (0.1-0.8); Absolute Neutrophil Count 2.54 10^3/uL (1.2-6.7); Basophils % 0.8; Eosinophils % 1.8; HCT 47.2 % (40.0-50.0); HGB 16.3 g/dL (13.5-17.5); Immature Grans % 0.4; Lymphocytes % 38.7; MCH 29.5 pg (27.0-33.0); MCHC 34.5 % (32.0-36.0); MCV 85 fL (80-95); MPV 10.2 fL (8.0-11.0); Monocytes % 8.3; Platelet Count 203 10^3/uL (130-400); RBC 5.53 10^6/uL (4.36-5.78); RDW 12.5 % (11.8-14.1); RDW-SD 39.1 fL; WBC 5.07 10^3/uL (4.4-10.8)
[2023-01-01 12:49] LABS: ALT 20 U/L (16-63); AST 23 U/L (15-37); Albumin 4.3 g/dL (3.4-5.0); Alkaline Phosphatase 62 U/L (46-116); Anion Gap 8.5 mmol/L (3-11); BUN 19 mg/dL (7-18); Bilirubin, Total 1.2 mg/dL (0.2-1.0); CO2 29.5 mmol/L (21.0-32.0); CREATININE 1.1 mg/dL (0.70-1.30); Calcium 10.2 mg/dL (8.5-10.1); Chloride 100 mmol/L (98-107); Estimated GFR 76.37 (mL/min/1.73m2); Glucose 110 mg/dL (74-106); Potassium 4.8 mmol/L (3.5-5.1); Sodium 138 mmol/L (136-145); Total Protein 8.1 g/dL (6.4-8.2)
== END 2023-01-01 12:55 | disposition home or self-care (01) ==
LOC: ER 12:56
PROVIDERS: Emergency Provider Registered Nurse Emergency; PCP Nurse Practitioner
DX: R09.89 Other specified symptoms and signs involving the circulatory and respiratory systems (principal); R13.10 Dysphagia, unspecified
CPT/HCPCS: 80053; 99283; 83735; 85025

== ENCOUNTER 2023-05-03 03:11 | Outpatient (CLI) | payer BC, SELFPAY ==
[2023-05-03 13:50] LABS: ALT 20 U/L (16-63); AST 22 U/L (15-37)
== END 2023-05-03 03:12 | disposition home or self-care (01) ==
PROVIDERS: PCP Nurse Practitioner; Visit Provider Dermatology
DX: B35.1 Tinea unguium (principal); Z79.899 Other long term (current) drug therapy
CPT/HCPCS: 36415; 84450; 84460

== ENCOUNTER 2023-12-05 09:23 | Outpatient (REF) | payer BC, SELFPAY ==
--- NOTE | 2023-12-05 09:15 | PAPNONF_PTH ---
PATIENT: Hiro Middleton LOC: [facility] U#:[id number] AGE/SX: 63/M ROOM: RE12/05/[address]: Maynor Salazar MD : 1960 BED: DIS: 12/05/2023 SPEC #: [id number] RECD: 12/05/23 13:10 STATUS: MAXIMO REWilliam #: [id number] DEZ: 12/05/23 09:[address]: Maynor Salazar DEPT: [facility] Cytology RECD BY: Korin Pinto ENTERED: 12/05/23 13:10 SP TYPE: KATERYNA PRINGLE DR: Genevieve Chapman APRN Tissues: 1 - BODY FLUID CYTO(SPUTUM/URINE)[facility] Procedures: BODY FLUID CYTO(URINE/SPUTUM) Comments: [id number] (TV = 40 ml, 30 ml CYTOLYT ADDED) (REFRIGERATED)
== END 2023-12-05 09:24 | disposition home or self-care (01) ==
LOC: LBN 09:23
PROVIDERS: PCP Nurse Practitioner; Visit Provider Urology
DX: C67.9 Malignant neoplasm of bladder, unspecified (principal)
CPT/HCPCS: 88104

== ENCOUNTER 2024-01-18 03:07 | Outpatient (CLI) | payer BC, SELFPAY ==
[2024-01-18 11:24] LABS: ALT 22 U/L (16-63); AST 27 U/L (15-37); Albumin 3.9 g/dL (3.4-5.0); Alkaline Phosphatase 60 U/L (46-116); Anion Gap 7.1 mmol/L (3-11); BUN 13 mg/dL (7-18); Bilirubin, Total 1.08 mg/dL (0.2-1.0); CO2 29.9 mmol/L (21.0-32.0); CREATININE 0.9 mg/dL (0.70-1.30); Calcium 9.2 mg/dL (8.5-10.1); Calculated LDL 138 mg/dL (<100); Chloride 107 mmol/L (98-107); Cholesterol 225 mg/dL (<200); Estimated GFR 96.57 (mL/min/1.73m2); Glucose 96 mg/dL (74-106); HDL Cholesterol 70 mg/dL (40-60); Potassium 5.1 mmol/L (3.5-5.1); Sodium 144 mmol/L (136-145); Total Protein 7.4 g/dL (6.4-8.2); Triglyceride 86 mg/dL (<150)
[2024-01-18 20:53] LABS: PSA, Screening 1.6 ng/mL (<=4.5)
== END 2024-01-18 03:08 | disposition home or self-care (01) ==
LOC: LBO 03:07
PROVIDERS: PCP Nurse Practitioner; Referring Provider Nurse Practitioner; Visit Provider Nurse Practitioner
DX: E78.5 Hyperlipidemia, unspecified (principal); C67.9 Malignant neoplasm of bladder, unspecified; Z12.5 Encounter for screening for malignant neoplasm of prostate
CPT/HCPCS: 36415; 80053; 80061; 84153

== ENCOUNTER 2024-05-16 01:48 | Outpatient (CLI) | payer BC, SELFPAY ==
[2024-05-21 08:57] LABS: Apolipoprotein B, Serum 104 mg/dL; Beta VLDL Cholesterol Not Detected mg/dL (<15); Beta VLDL Triglycerides Not Detected mg/dL (<15); Cholesterol, Total, CDC 230 mg/dL; Chylomicron Cholesterol Not Detected; Chylomicron Triglycerides Not Detected; HDL Cholesterol, CDC 51 mg/dL (>=40); LDL Cholesterol 140 mg/dL; LDL Triglycerides 35 mg/dL (<=50); Lp(a) Cholesterol <5 mg/dL (<5); LpX Not detected; Triglycerides, CDC 128 mg/dL; VLDL Cholesterol 39 mg/dL (<30); VLDL Triglycerides 74 mg/dL (<120)
== END 2024-05-16 01:49 | disposition home or self-care (01) ==
PROVIDERS: PCP Nurse Practitioner; Visit Provider Nurse Practitioner
DX: E78.5 Hyperlipidemia, unspecified (principal)
CPT/HCPCS: 36415; 80061; 82172; 82664

== ENCOUNTER 2024-12-03 09:34 | Outpatient (REF) | payer BC, SELFPAY ==
--- NOTE | 2024-12-03 09:30 | PAPNONF_PTH ---
PATIENT: Hiro Middleton LOC: [facility] U#:[id number] AGE/SX: 64/M ROOM: RE12/03/[address]: Maynor Salazar MD : 1960 BED: DIS: 12/03/2024 SPEC #: [id number] RECD: 12/03/24 12:52 STATUS: MAXIMO REWilliam #: [id number] DEZ: 12/03/24 09:[address]: Maynor Salazar DEPT: [facility] Cytology RECD BY: Korin Pinto ENTERED: 12/03/24 12:52 SP TYPE: KATERYNA PRINGLE DR: Genevieve Chapman APRN Tissues: 1 - BODY FLUID CYTO(SPUTUM/URINE)[facility] Procedures: BODY FLUID CYTO(URINE/SPUTUM) Comments: [id number] (TV = 100 ml) (REFRIGERATED) (50 ml URINE & 30 ml CYTOLYT ADDED IN 2 CONTAINERS)
== END 2024-12-03 09:35 | disposition home or self-care (01) ==
LOC: LBN 09:34
PROVIDERS: PCP Nurse Practitioner; Visit Provider Urology
DX: R82.89 Other abnormal findings on cytological and histological examination of urine (principal); C67.9 Malignant neoplasm of bladder, unspecified
CPT/HCPCS: 88104